=== PATIENT | female | born 1940 | race Caucasian/White ===

== ENCOUNTER 2018-11-08 12:32 | Inpatient (IN) | payer OTHER ==
[2018-11-08] MEDS ORDERED: ALBUTEROL 3 ML DEYVIAL IH PRN (19:57)
[2018-11-08] MEDS ORDERED: CALCIUM CARBONATE 500 MG CHEWABLE TAB PO PRN (19:57)
[2018-11-08] MEDS ORDERED: NYSTATIN POWDER 15 GM BTL TP PRN (19:57)
[2018-11-08] MEDS ORDERED: NITROGLYCERIN 2% 1 GM PACKET TP PRN (19:57)
[2018-11-08] MEDS ORDERED: HYDROCORTISONE ACETATE 25 MG SUPP PR PRN (19:57)
[2018-11-08] MEDS ORDERED: D50W 25 GM/50 ML VIAL IVP PRN (20:01)
[2018-11-08] MEDS: HYDROCODONE/APAP 5/325 TAB PO PRN (20:27)
[2018-11-08] MEDS: SENNOSIDES/DOCUSATE SODIUM TAB PO SCH (20:27)
[2018-11-08] MEDS: GABAPENTIN 100 MG CAP PO SCH (20:28)
[2018-11-08] MEDS: NORTRIPTYLINE HCL 25 MG CAP PO SCH (20:28)
[2018-11-08] MEDS: ATORVASTATIN CALCIUM 20 MG TAB PO SCH (20:28)
--- NOTE | 2018-11-08 20:57 | GHP ---
[f rep st] HISTORY AND PHYSICAL DATE OF ADMISSION: 11/08/2018 TIME OF EVALUATION: 1855. REFERRING FACILITY: [facility]. REFERRING PHYSICIAN: Dr. Pham IMPAIRMENT GROUP: [id number]. CONSULTING PHYSICIANS: There were discussions with Neurology and Neurosurgery, but no formal consultations. REHABILITATION DIAGNOSIS: Spinal cord injury due to ischemia, T1 incomplete SAVANNAH impairment C. ETIOLOGIC DIAGNOSIS: Paraplegia, unspecified (nontraumatic). Date of onset was 09/14/2018. Date of surgery was 10/15/2018. HISTORY OF PRESENT ILLNESS: This patient sustained an ischemic spinal cord injury from the thoracic cord to the conus as a consequence of an elective aortoiliac bypass graft which included reimplantation of 2 renal arteries. This surgery was done on 09/14/2018. She had bilateral lower extremity weakness afterwards and was discharged to a fdc facility for rehabilitation. She was very unsatisfied with the level of care at the fdc facility and went home early. However, she was not able to effectively be managed at home where she was living with her disabled and a son who works full stack software developer. She returned to the [facility] where she had further evaluation and treatment for abnormal laboratory results. She had hypokalemia and hypomagnesemia. There was a small sacral ulcer and severe constipation. In the hospital, her electrolytes were replaced. She was placed on an aggressive bowel regimen and had 1 hard and large stool on 11/01/2018. She had bright red blood per rectum subsequently, and was found to have hemorrhoids. She was maintained on a Lackey catheter which was last exchanged on 11/05/2018. She was mildly volume overloaded and treated with furosemide. STUDIES AND LABS IN THE HOSPITAL: Hemoglobin A1c was 6.7. Total iron was 15, ferritin was high at 346, folate was high, transferrin was 156. Vitamin B12 was normal at 674. A CBC showed anemia with a hemoglobin of 8.7 and hematocrit of 25.9 on 10/30/2018. Platelet count was normal and white blood cell count was normal. BMP on the same date showed a low potassium at 2.9, otherwise was normal. Magnesium was low at 1.3. EKG showed sinus rhythm with a left axis deviation and moderate intraventricular conduction delay. Most recent labs were done on 11/07/2018. Basic metabolic profile was normal. CBC on 2018 showed a hemoglobin of 8.6 and hematocrit of 26.3. She had normal platelet count and normal white blood cell count. Phosphorus on 11/07/2018, was normal at 3.6, and magnesium was slightly low at 1.4. PRECAUTIONS: She is a fall risk. ACTIVE COMORBIDITIES: She has the tier 3 comorbidity of hemiparesis which is actually paraplegia. She has morbid obesity. She has diabetes mellitus with manifestations including peripheral vascular disease. She otherwise has no active tier 1, tier 2 or tier 3 comorbidities. PAST MEDICAL HISTORY: 1. Peripheral vascular disease, status post aortoiliac bypass with reimplantation of 2 left renal arteries, the COURTNEY and the SMA. 2. Hospital delirium. 3. Pseudomonas UTI and sepsis in the hospital. 4. Spinal cord ischemia. 5. Acute kidney injury with dialysis during her prior hospitalization and subsequent recovery of renal function. 6. Anemia. 7. Neurogenic bladder. 8. Spinal degenerative joint disease. 9. Chronic pain. 10. Claudication due to peripheral vascular disease. 11. Diabetes mellitus type 2. 12. Eczema. 13. Cystocele. 14. Fibromyalgia. 15. Gastroesophageal reflux disease. 16. Basal cell skin carcinoma. 17. Hypertension. 18. Dyslipidemia. 19. Hypothyroidism. 20. Irritable bowel syndrome. 21. Lyme disease. 22. Meningioma. 23. Occipital neuralgia. 24. Peripheral neuropathy. 25. Essential tremor. PAST SURGICAL HISTORY: 1. She has had the aortoiliac bypass graft. 2. Cholecystectomy. 3. Hysterectomy. 4. Salpingo-oophorectomy, bilateral. 5. Intraoperative urethrolysis. 6. Bladder suspension and surgery for cystocele and rectocele. 7. Right knee replacement. 8. Tonsillectomy. MEDICATIONS: Home medications are no longer relevant as she has had prolonged hospitalizations, and I do not have the list of her discharge medications from her prior hospitalization. ADMISSION MEDICATIONS: 1. Amlodipine 5 mg p.o. daily. 2. Aspirin 81 mg p.o. daily. 3. Atorvastatin 20 mg p.o. at bedtime. 4. B complex 1 p.o. daily. 5. Cholecalciferol 1000 units p.o. daily. 6. Gabapentin 100 mg p.o. t.i.d. 7. Hydrocodone/acetaminophen 5/325 one p.o. q.6 hours p.r.n. 8. Levothyroxine 75 mcg p.o. daily. 9. Nortriptyline 10 mg p.o. at bedtime. 10. Nystatin powder to affected area b.i.d. p.r.n. 11. Senna/docusate 2 p.o. b.i.d. 12. Tamsulosin 0.4 mg p.o. at bedtime. 13. Triamcinolone 0.1% to affected areas twice daily. 14. Insulin NPH 18 units subcutaneous at bedtime. 15. Furosemide 20 mg p.o. daily. 16. Hydrocortisone, Anusol HC suppository q.12 hours p.r.n. hemorrhoidal symptoms. ALLERGIES: Listed to doxycycline, duloxetine, gabapentin, morphine, and topiramate, but these are all intolerances rather than true allergies. PSYCHOSOCIAL HISTORY: She is . Her has disability and is living with her daughter at home. She lives with her son and [id number] and 2 teenage grandchildren. She has never been a smoker. 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 There is 1 stair to enter the home, but her family has already constructed a ramp. FAMILY HISTORY: Noncontributory. REVIEW OF SYSTEMS: She has little pain, but she has been using [place] at bedtime to help her get to sleep. She has no cough or dyspnea. She has sensation throughout and notes that she has some movement returning to her feet and more so on her right leg. She feels she has normal strength in her upper extremities. She has no cough or dyspnea. She has no fevers or chills. She has no nausea or vomiting. Her last bowel movement was yesterday. She is aware when she has the acute need to defecate but finds she has no control and has fecal incontinence. She reports that she has done self catheterization of her bladder in the past following her bladder procedure and is willing to do so once again. Otherwise, a 10-point review of systems is negative. PHYSICAL EXAMINATION: VITAL SIGNS: Vitals are not yet available in the chart. Her blood pressure was in the 150s over the 90s. Her pulse was in the 90s. She appears to be significantly obese, but weight is not yet recorded. GENERAL : This is a well-nourished, well-developed, obese woman, dressed in hospital gown, in bed, but neatly groomed, cooperative and in no acute distress. HEENT: Extraocular movements are intact. Pupils are equal, round, reactive to light. Mucous members are moist. Dentition is in good condition. NECK: Supple. HEART: Regular rate and rhythm with no murmurs, rubs, or gallops. CHEST: Lungs are clear to auscultation bilaterally. ABDOMEN: Soft, nontender , nondistended with normoactive bowel sounds and no hepatosplenomegaly. EXTREMITIES: There is no cyanosis. There is 1+ edema bilaterally, pretibial. Radial and dorsalis pedis pulses are 2+ bilaterally. NEUROLOGIC: She is alert and oriented x3. Cranial nerves 2-12 are grossly intact. Upper extremity motor strength is normal. Sensation is present in all extremities. On the lower extremity on the right leg she is able to plantar flex and dorsiflex the foot and great toe with approximately 3/5 strength. She has 2/5 strength at the right quadriceps. Otherwise, there was no motor function noted in the right lower extremity. In the left lower extremity, she has minimal movement at the toes and otherwise there is no motor strength noted. Deep tendon reflexes are absent bilaterally at the patella and Achilles tendons. SKIN: There is no ulceration seen over the coccyx, sacrum, or buttocks. She has eschar and denuded skin over time most of her toes on the left lower extremity. CURRENT LEVEL OF FUNCTION: Per the pre-admission screen. She was able to feed herself with setup and supervision. Grooming was done with minimal assist and cues while sitting. Dressing upper body required moderate assistance and lower body was completely dependent. Toileting was completely dependent. Regarding bladder function, she had a Lackey catheter. She was incontinent of bowel. Bed mobility, from supine to sit required maximal assistance. Transfers were done with a Elton lift. Balance, seated required maximal assist, and there were decreased balance reactions. Endurance was poor. Regarding cognition, she was noted to have decreased safety. On today's exam, there are no significant changes from the preadmission screen. 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 She, unfortunately, suffered a spinal cord ischemia during and/or after the procedure and was found to have minimal movement of the lower extremities, and to be an incomplete paraplegic SAVANNAH class C at the T1 level. She has had a complicated hospital course following that surgery, including hospital delirium, acute kidney injury and pseudomonas UTI and sepsis. She was eventually stabilized and transferred to a fdc facility, but she left early as she felt she was not getting appropriate care there. She was unable to be cared for at home by her family and returned to the hospital with severe constipation and electrolyte abnormalities. Electrolytes have been replaced. Constipation has resolved, and she was otherwise medically stabilized and appropriate for inpatient rehabilitation. Her goal is to have decreased burden of care. She reports that she would like to return home. It is my understanding that the alternative disposition might be to a fdc facility for long-term care if her family is unable to provide sufficient level of care at home. For a safe discharge, it is anticipated that she will be able to progress to increased assist with repositioning in bed. She will be at standby assist level with seated balance. She will be independent with pressure relief in the wheelchair, independent with upper body dressing, independent with grooming and hygiene and independent in the self direction of assist required for completion of transfers, ADLs, bowel and bladder management, and skin care. There will be family education regarding current medical and functional status. She will have therapy with physical therapy and occupational therapy for 90 minutes per day on 5-7 days of the week. Her expected duration of stay is 3-4 weeks. It is anticipated that upon discharge, she will continue to require home health services including nursing, a nurse's aide, social work, occupational therapy, and physical therapy. Additionally, she will benefit from a spinal cord injury support group. PLAN: 1. Spinal cord injury, T1 level, incomplete SAVANNAH class C. PT and OT to optimize her mobility and activities of daily living. 2. Complications of spinal cord injury with neurogenic bowel, neurogenic bladder and very impaired lower extremity motor function. She will be treated with the neurogenic bowel and bladder protocols. Lackey catheter will be removed tomorrow, and she will be taught once again in intermittent bladder catheterization to be done by herself. She has adequate upper extremity motor function and sensation to be able to accomplish this task. She is at risk for autonomic dysreflexia and will be monitored for signs of distress or elevated blood pressure and will be treated with the autonomic dysreflexia protocol on the rehabilitation unit. 3. Chronic conditions of hypertension, dyslipidemia, hypothyroidism, and diabetes mellitus type 2. She will be continued on medications for these conditions. 4. History of peripheral neuropathy. She is treated with nortriptyline at 10 mg at h.s. as she also reports insomnia. I will increase this to 25 mg at bedtime. 5. Peripheral vascular disease. Continue aspirin. 6. Skin lesions on the left toes. These appear to be more likely consistent with cholesterol emboli than with pressure ulcers. There will be a wound nurse consult to optimize her management. 7. Fluid overload seen in the hospital. Continue furosemide and will check a basic metabolic profile in the morning. 8. Anemia in the hospital. Will check a CBC in the morning. We will institute iron sulfate at 325 mg daily for 30 days for iron deficiency, though December 08, 2018. 9. Obesity and diabetes mellitus will merit a consult with the dietitian for optimal nutrition. 10. Prophylaxis. She has prolonged immobility and elevated risk for DVT. Will initiate enoxaparin at 40 mg subcutaneous daily. This can be discontinued if her mobility improves significantly or once she is 2-3 months out from the onset of her spinal cord injury. /[id number]/MODL MTDD
[2018-11-08] MEDS: TRIAMCINOLONE 0.1% 15GM OINT TP SCH (21:20)
[2018-11-08] MEDS: INSULIN NPH HUMAN 100 UNITS/ML SYR SC SCH (21:20)
[2018-11-08] MEDS: INSULIN REGULAR HUMAN 100 UNIT/ML UNIT SC SCH (21:29)
[2018-11-09] MEDS: LEVOTHYROXINE 75 MCG TAB PO SCH (06:37)
[2018-11-09] MEDS: SENNOSIDES/DOCUSATE SODIUM TAB PO SCH ×3 (09:02→21:12)
[2018-11-09] MEDS: GABAPENTIN 100 MG CAP PO SCH ×3 (09:02→21:11)
[2018-11-09] MEDS: FUROSEMIDE 20 MG TAB PO SCH (09:02)
[2018-11-09] MEDS: ASPIRIN 81 MG CHEWABLE TAB PO SCH (09:03)
[2018-11-09] MEDS: FERROUS SULFATE 325 MG TAB PO SCH (09:03)
[2018-11-09] MEDS: MAGNESIUM OXIDE 400 MG TAB PO SCH ×2 (09:03→17:35)
[2018-11-09] MEDS: amLODIPine BESYLATE 5 MG TAB PO SCH (09:05)
[2018-11-09] MEDS: ENOXAPARIN 40 MG/0.4 ML SYR SC SCH (09:06)
[2018-11-09] MEDS: INSULIN REGULAR HUMAN 100 UNIT/ML UNIT SC SCH ×4 (09:16→22:28)
[2018-11-09 09:28] LABS: PLATELET COUNT 316 10^3/uL (150-400)
--- NOTE | 2018-11-09 11:04 | SOAPPROG ---
SOAP Progress Note Assessment/Plan: Assessment: Spinal cord injury, T1 level, incomplete SAVANNAH class C. PT and OT to optimize her mobility and activities of daily living. Complications of spinal cord injury with neurogenic bowel, neurogenic bladder and very impaired lower extremity motor function. She will be treated with the neurogenic bowel and bladder protocols. * Lackey catheter to be removed 11/09/2018 or as soon as the unit obtains enough catheters for Q 4 hr intermittent straight catheterization. She will be taught once again in intermittent bladder catheterization to be done by herself. She has adequate upper extremity motor function and sensation to be able to accomplish this task. * She is at risk for autonomic dysreflexia and will be monitored for signs of distress or elevated blood pressure and will be treated with the autonomic dysreflexia protocol on the rehabilitation unit. Chronic conditions of hypertension, dyslipidemia, hypothyroidism, and diabetes mellitus type 2. She will be continued on medications for these conditions. * Initiate metformin 500 mg twice daily with meals beginning evening of 2018. Will likely be able to discontinue sliding scale insulin subsequently. History of peripheral neuropathy. She is treated with nortriptyline 10 mg at h.s. As she also reports insomnia, I will increase this to 25 mg at bedtime. Continue gabapentin at 100 mg three times daily. Consider titration if symptoms are bothersome. Peripheral vascular disease. Continue aspirin. Skin lesions on the left toes. These appear to be more likely consistent with cholesterol emboli than with pressure ulcers. There will be a wound nurse consult to optimize her management. Fluid overload seen in the hospital. * Continue furosemide. Renal function normal on BMP 11/09/2018. Hypomagnesemia. Continue magnesium oxide. Magnesium very slightly low on 2018. Anemia in the hospital. * Also had significant iron deficiency, so initiated iron sulfate 325 mg q.day starting 11/09/2018. * Stable on CBC 11/09/2018, with hemoglobin 8.3 and hematocrit 25.8. Recheck hemoglobin and hematocrit in 1 week Obesity and diabetes mellitus will merit a consult with the dietitian for optimal nutrition. Prophylaxis. She has prolonged immobility and elevated risk for DVT. Will initiate enoxaparin at 40 mg subcutaneous daily. This can be discontinued if her mobility improves significantly or once she is 2-3 months out from the onset of her spinal cord injury. 11/09/18 14:17 Subjective: Slept well. Not in pain. Notes improved movement to her feet. No cough or dyspnea, no fevers or chills. Objective: Vital Signs Temp Pulse Resp BP Pulse Ox 36.9 C 102 H 18 138/70 H 92 11/09/18 05:28 11/09/18 05:28 11/09/18 05:28 11/09/18 09:05 11/09/18 05:28 Laboratory Results 11/09/18 06:00 11/09/18 06:00 11/08/18 11/09/18 11/10/18 05:59 05:59 05:59 Intake Total 400 Output Total 700 Balance -300 Physical Exam - Physical Exam General Appearance: WD/WN, alert, no apparent distress, obese Respiratory: No respiratory distress, No accessory muscle use Skin: normal color, warm/dry Neuro/Psych: alert, normal mood/affect, oriented x 3, motor weakness ( Demonstrates some movement of the feet, right greater than left, and has quadriceps extension of the right leg.) ICD10 Worksheet Patient Problems: Problems Problem Status Onset Spinal cord stroke Acute
[2018-11-09] MEDS: TRIAMCINOLONE 0.1% 15GM OINT TP SCH ×2 (12:01→21:53)
[2018-11-09] MEDS: BISACODYL 10 MG SUPP PR SCH (16:46)
--- NOTE | 2018-11-09 16:46 | PDOREHIP ---
Admission [facility] - Admission - 3 Day Assessment Period Admission Date/Day 1: 11/08/18 Day 2: 11/09/18 Day 3: 11/10/18 - Active Diagnoses Comorbidities and Co-existing Conditions at Admission: 89197. PVD or PAD, 88024. DM (e.g. diabetic retinopathy, nephropathy, and neuropathy) - Skin Conditions Unhealed Pressure Ulcer (1 or more/Stage 1 or >)-Admission: 0. No # Stage 1 Pressure Ulcers-Admission: 0 # Stage 2 Pressure Ulcers-Admission: 0 # Stage 3 Pressure Ulcers-Admission: 0 # Stage 4 Pressure Ulcers-Admission: 0 # Unstageable Pressure Ulcers (Non-remove Dress)-Admission: 0 # Unstageable Pressure Ulcers (Slough/Eschar)-Admission: 0 # Unstageable Pressure Ulcers (Deep Tissue Injury)-Admission: 0
[2018-11-09] MEDS: metFORMIN HCL 500 MG TAB PO SCH (17:35)
[2018-11-09] MEDS: HYDROCODONE/APAP 5/325 TAB PO PRN (20:34)
[2018-11-09] MEDS: NORTRIPTYLINE HCL 25 MG CAP PO SCH (21:12)
[2018-11-09] MEDS: ATORVASTATIN CALCIUM 20 MG TAB PO SCH (21:12)
[2018-11-09] MEDS: INSULIN NPH HUMAN 100 UNITS/ML SYR SC SCH (22:28)
[2018-11-10] MEDS: LEVOTHYROXINE 75 MCG TAB PO SCH (06:37)
[2018-11-10] MEDS: ENOXAPARIN 40 MG/0.4 ML SYR SC SCH (08:44)
[2018-11-10] MEDS: INSULIN REGULAR HUMAN 100 UNIT/ML UNIT SC SCH (08:44)
[2018-11-10] MEDS: GABAPENTIN 100 MG CAP PO SCH ×3 (08:45→21:13)
[2018-11-10] MEDS: SENNOSIDES/DOCUSATE SODIUM TAB PO SCH ×2 (08:45→21:12)
[2018-11-10] MEDS: metFORMIN HCL 500 MG TAB PO SCH ×2 (08:45→17:39)
[2018-11-10] MEDS: MAGNESIUM OXIDE 400 MG TAB PO SCH ×2 (08:46→17:39)
[2018-11-10] MEDS: ASPIRIN 81 MG CHEWABLE TAB PO SCH (08:46)
[2018-11-10] MEDS: amLODIPine BESYLATE 5 MG TAB PO SCH (08:46)
[2018-11-10] MEDS: FUROSEMIDE 20 MG TAB PO SCH (08:47)
[2018-11-10] MEDS: FERROUS SULFATE 325 MG TAB PO SCH (08:47)
[2018-11-10] MEDS: HYDROCODONE/APAP 5/325 TAB PO PRN (08:47)
--- NOTE | 2018-11-10 11:21 | HOSPPROG ---
Hospitalist Progress Note Assessment/Plan: Spinal cord injury, T1 level, incomplete SAVANNAH class C. PT and OT to optimize her mobility and activities of daily living. Complications of spinal cord injury with neurogenic bowel, neurogenic bladder and very impaired lower extremity motor function. She will be treated with the neurogenic bowel and bladder protocols. * Lackey catheter to be removed 11/09/2018 or as soon as the unit obtains enough catheters for Q 4 hr intermittent straight catheterization. She will be taught once again in intermittent bladder catheterization to be done by herself. She has adequate upper extremity motor function and sensation to be able to accomplish this task. * She is at risk for autonomic dysreflexia and will be monitored for signs of distress or elevated blood pressure and will be treated with the autonomic dysreflexia protocol on the rehabilitation unit. * STILL WAITING FOR SELF CATH SUPPLIES SO CAROL IS STILL IN Chronic conditions of hypertension, dyslipidemia, hypothyroidism, and diabetes mellitus type 2. She will be continued on medications for these conditions. * Initiate metformin 500 mg twice daily with meals beginning evening of 2018. Will likely be able to discontinue sliding scale insulin subsequently. * WILL DC SLIDING SCALE - BLOOD SUGARS ARE MOSTLY BELOW 200. WAIT SEVERAL DAYS BEFORE INCREASING METFORMIN History of peripheral neuropathy. She is treated with nortriptyline 10 mg at h.s. As she also reports insomnia, I will increase this to 25 mg at bedtime. Continue gabapentin at 100 mg three times daily. Consider titration if symptoms are bothersome. Peripheral vascular disease. Continue aspirin. Skin lesions on the left toes. These appear to be more likely consistent with cholesterol emboli than with pressure ulcers. There will be a wound nurse consult to optimize her management. Fluid overload seen in the hospital. * Continue furosemide. Renal function normal on BMP 11/09/2018. Hypomagnesemia. Continue magnesium oxide. Magnesium very slightly low on 2018. Anemia in the hospital. * Also had significant iron deficiency, so initiated iron sulfate 325 mg q.day starting 11/09/2018. * Stable on CBC 11/09/2018, with hemoglobin 8.3 and hematocrit 25.8. Recheck hemoglobin and hematocrit in 1 week Obesity and diabetes mellitus will merit a consult with the dietitian for optimal nutrition. Prophylaxis. She has prolonged immobility and elevated risk for DVT. Will initiate enoxaparin at 40 mg subcutaneous daily. This can be discontinued if her mobility improves significantly or once she is 2-3 months out from the onset of her spinal cord injury. Subjective: no new compliants. very happy with rehab so far. Objective: Vital Signs Temp Pulse Resp BP Pulse Ox 37.0 C 106 H 18 142/71 H 93 11/09/18 20:00 11/09/18 20:00 11/09/18 20:00 11/10/18 08:46 11/09/18 20:00 Laboratory Results 11/09/18 06:00 11/09/18 06:00 11/09/18 11/10/18 11/11/18 05:59 05:59 05:59 Intake Total 400 900 Output Total 700 1800 Balance -300 -900 - Physical Exam Constitutional: no apparent distress, appears nourished, not in pain Eyes: anicteric sclera, EOMI Ears, Nose, Mouth, Throat: moist mucous membranes Cardiovascular: regular rate and rhythym, no murmur, rub, or gallop Respiratory: no respiratory distress, no rales or rhonchi Skin: warm, other (superficial ischemic skin wounds left toes) Neurologic: AAOx3, other (wiggles toes) ICD10 Worksheet Patient Problems: Problems Problem Status Onset Spinal cord stroke Acute
[2018-11-10] MEDS: TRIAMCINOLONE 0.1% 15GM OINT TP SCH ×2 (17:04→19:40)
[2018-11-10] MEDS: ACETAMINOPHEN 325 MG TAB PO PRN (17:18)
[2018-11-10] MEDS: BISACODYL 10 MG SUPP PR SCH (19:40)
[2018-11-10] MEDS: ATORVASTATIN CALCIUM 20 MG TAB PO SCH (21:12)
[2018-11-10] MEDS: NORTRIPTYLINE HCL 25 MG CAP PO SCH (21:12)
[2018-11-10] MEDS: INSULIN NPH HUMAN 100 UNITS/ML SYR SC SCH (21:13)
[2018-11-11] MEDS: LEVOTHYROXINE 75 MCG TAB PO SCH (06:25)
[2018-11-11] MEDS: metFORMIN HCL 500 MG TAB PO SCH ×2 (08:45→18:20)
[2018-11-11] MEDS: MAGNESIUM OXIDE 400 MG TAB PO SCH ×2 (08:45→18:20)
[2018-11-11] MEDS: GABAPENTIN 100 MG CAP PO SCH ×4 (08:46→21:14)
[2018-11-11] MEDS: FUROSEMIDE 20 MG TAB PO SCH (08:46)
[2018-11-11] MEDS: SENNOSIDES/DOCUSATE SODIUM TAB PO SCH ×2 (08:46→21:14)
[2018-11-11] MEDS: FERROUS SULFATE 325 MG TAB PO SCH (08:47)
[2018-11-11] MEDS: amLODIPine BESYLATE 5 MG TAB PO SCH (08:47)
[2018-11-11] MEDS: ENOXAPARIN 40 MG/0.4 ML SYR SC SCH (08:47)
[2018-11-11] MEDS: ASPIRIN 81 MG CHEWABLE TAB PO SCH (08:47)
[2018-11-11] MEDS: TRIAMCINOLONE 0.1% 15GM OINT TP SCH ×2 (08:48→21:14)
[2018-11-11] MEDS ORDERED: GABAPENTIN 100 MG CAP PO ONE ×2 (10:51)
[2018-11-11] MEDS ORDERED: GABAPENTIN 100 MG CAP PO SCH (10:52)
--- NOTE | 2018-11-11 11:00 | HOSPPROG ---
Hospitalist Progress Note Assessment/Plan: Spinal cord injury, T1 level, incomplete SAVANNAH class C. PT and OT to optimize her mobility and activities of daily living. Complications of spinal cord injury with neurogenic bowel, neurogenic bladder and very impaired lower extremity motor function. She will be treated with the neurogenic bowel and bladder protocols. * Lackey catheter to be removed 11/09/2018 or as soon as the unit obtains enough catheters for Q 4 hr intermittent straight catheterization. She will be taught once again in intermittent bladder catheterization to be done by herself. She has adequate upper extremity motor function and sensation to be able to accomplish this task. * She is at risk for autonomic dysreflexia and will be monitored for signs of distress or elevated blood pressure and will be treated with the autonomic dysreflexia protocol on the rehabilitation unit. * BEING TAUGHT HOW TO SELF CATH Chronic conditions of hypertension, dyslipidemia, hypothyroidism, and diabetes mellitus type 2. She will be continued on medications for these conditions. * Initiate metformin 500 mg twice daily with meals beginning evening of 2018. Will likely be able to discontinue sliding scale insulin subsequently. * WILL DC SLIDING SCALE - BLOOD SUGARS ARE MOSTLY BELOW 200. WAIT SEVERAL DAYS BEFORE INCREASING METFORMIN * DONT KNOW WHY SHE IS ON NPH AT NIGHT - THAT IS HER HOME REGIMEN History of peripheral neuropathy. She is treated with nortriptyline 10 mg at h.s. As she also reports insomnia, I will increase this to 25 mg at bedtime. Continue gabapentin at 100 mg three times daily. Consider titration if symptoms are bothersome. * NEW NEUROPATHIC PAIN PRESUMABLY FROM SPINAL CORD INJURY - WILL INCREASE GABAPENTIN TO 200 MG TID. SHE HAD SOME NAUSEA IN THE PAST TO IT SO WILL INCREASE SLOWLY Peripheral vascular disease. Continue aspirin. Skin lesions on the left toes. These appear to be more likely consistent with cholesterol emboli than with pressure ulcers. There will be a wound nurse consult to optimize her management. Fluid overload seen in the hospital. * Continue furosemide. Renal function normal on BMP 11/09/2018. * INCREASE FUROSEMIDE TO 40 MG DAILY CLOUDY URINE * CHECK UA Hypomagnesemia. Continue magnesium oxide. Magnesium very slightly low on 2018. Anemia in the hospital. * Also had significant iron deficiency, so initiated iron sulfate 325 mg q.day starting 11/09/2018. * Stable on CBC 11/09/2018, with hemoglobin 8.3 and hematocrit 25.8. Recheck hemoglobin and hematocrit in 1 week Obesity and diabetes mellitus will merit a consult with the dietitian for optimal nutrition. Prophylaxis. She has prolonged immobility and elevated risk for DVT. Will initiate enoxaparin at 40 mg subcutaneous daily. This can be discontinued if her mobility improves significantly or once she is 2-3 months out from the onset of her spinal cord injury. Subjective: norco doesn't help with pain. gabapentin does. wondering about increasing the dose. also wth cloudy smelly urine per RN Objective: Vital Signs Temp Pulse Resp BP Pulse Ox 36.8 C 100 16 133/75 H 97 11/10/18 20:00 11/10/18 20:00 11/10/18 20:00 11/11/18 08:47 11/10/18 20:00 Laboratory Results 11/09/18 06:00 11/09/18 06:00 11/10/18 11/11/18 11/12/18 05:59 05:59 05:59 Intake Total 900 Output Total 1800 1325 Balance -900 -1325 - Physical Exam Constitutional: no apparent distress, appears nourished, not in pain Eyes: anicteric sclera, EOMI Ears, Nose, Mouth, Throat: moist mucous membranes Cardiovascular: regular rate and rhythym, edema (2+) Respiratory: no respiratory distress, no rales or rhonchi Gastrointestinal: normoactive bowel sounds, soft, non-tender abdomen, no palpable masses Skin: warm Neurologic: AAOx3 ICD10 Worksheet Patient Problems: Problems Problem Status Onset Spinal cord stroke Acute
[2018-11-11] MEDS: BISACODYL 10 MG SUPP PR SCH (16:34)
[2018-11-11] MEDS: INSULIN NPH HUMAN 100 UNITS/ML SYR SC SCH (21:13)
[2018-11-11] MEDS: ATORVASTATIN CALCIUM 20 MG TAB PO SCH (21:14)
[2018-11-11] MEDS: NORTRIPTYLINE HCL 25 MG CAP PO SCH (21:14)
[2018-11-12] MEDS: LEVOTHYROXINE 75 MCG TAB PO SCH (07:18)
[2018-11-12] MEDS: amLODIPine BESYLATE 5 MG TAB PO SCH (08:08)
[2018-11-12] MEDS: FERROUS SULFATE 325 MG TAB PO SCH (08:09)
[2018-11-12] MEDS: MAGNESIUM OXIDE 400 MG TAB PO SCH ×2 (08:09→17:19)
[2018-11-12] MEDS: SENNOSIDES/DOCUSATE SODIUM TAB PO SCH ×2 (08:09→19:15)
[2018-11-12] MEDS: ASPIRIN 81 MG CHEWABLE TAB PO SCH (08:09)
[2018-11-12] MEDS: FUROSEMIDE 20 MG TAB PO SCH (08:09)
[2018-11-12] MEDS: GABAPENTIN 100 MG CAP PO SCH ×3 (08:09→21:35)
[2018-11-12] MEDS: metFORMIN HCL 500 MG TAB PO SCH ×2 (08:09→17:19)
[2018-11-12] MEDS: ENOXAPARIN 40 MG/0.4 ML SYR SC SCH (08:10)
[2018-11-12] MEDS: TRIAMCINOLONE 0.1% 15GM OINT TP SCH ×2 (08:26→21:35)
--- NOTE | 2018-11-12 11:12 | SOAPPROG ---
SOAP Progress Note Assessment/Plan: Assessment: Plan: Subjective: Patient reports that she continues to have pain around her ankles. She had some increased neuropathic pain over the weekend and her dosage of gabapentin was increased. She does not report nausea with the gabapentin. She does not report pain in her left toes. She denies of the dysuria or suprapubic pain. Objective: Vital Signs Temp Pulse Resp BP Pulse Ox 36.8 C 100 19 143/79 H 93 11/12/18 07:26 11/12/18 07:26 11/12/18 07:26 11/12/18 08:08 11/12/18 07:26 Laboratory Results 11/09/18 06:00 11/09/18 06:00 11/11/18 11/12/18 11/13/18 05:59 05:59 05:59 Intake Total 1350 354 Output Total 3041 1950 Balance -1325 -600 354 ICD10 Worksheet Patient Problems: Problems Problem Status Onset Spinal cord stroke Acute
--- NOTE | 2018-11-12 11:20 | SOAPPROG ---
SOAP Progress Note Assessment/Plan: Assessment: Spinal cord injury, T1 level, incomplete SAVANNAH class C. PT and OT to optimize her mobility and activities of daily living. GABAPENTIN FOR LOWER EXTREMITY NEUROPATHIC PAIN Complications of spinal cord injury with neurogenic bowel, neurogenic bladder and very impaired lower extremity motor function. She will be treated with the neurogenic bowel and bladder protocols. * Lackey catheter to be removed 11/09/2018 or as soon as the unit obtains enough catheters for Q 4 hr intermittent straight catheterization. Team rounds on indicates the patient is unable to perform self catheterization due to a combination of body habitus and inability to abduct hips. She has adequate upper extremity motor function and sensation to be able to accomplish this task. * She is at risk for autonomic dysreflexia and will be monitored for signs of distress or elevated blood pressure and will be treated with the autonomic dysreflexia protocol on the rehabilitation unit. Chronic conditions of hypertension, dyslipidemia, hypothyroidism, and diabetes mellitus type 2. She will be continued on medications for these conditions. * Initiate metformin 500 mg twice daily with meals beginning evening of 2018. SLIDING SCALE INSULIN DISCHARGED OVER THE WEEKEND. History of peripheral neuropathy. She is treated with nortriptyline 10 mg at h.s. As she also reports insomnia, I will increase this to 25 mg at bedtime. Continue gabapentin at 100 mg three times daily. Consider titration if symptoms are bothersome. HYPERTENSION-BLOOD PRESSURES TO ON 11/12 143/79. Peripheral vascular disease. Continue aspirin. GOOD CAPILLARY REFILL OF BOTH LOWER EXTREMITIES Skin lesions on the left toes. These appear to be more likely consistent with cholesterol emboli than with pressure ulcers. NURSING HAS NOTIFIED WOUND CARE NURSE WHO WILL SEE PATIENT TODAY. Fluid overload seen in the hospital. * Continue furosemide. Renal function normal on BMP 11/09/2018. Hypomagnesemia. Continue magnesium oxide. Magnesium very slightly low on 2018. Anemia in the hospital. * Also had significant iron deficiency, so initiated iron sulfate 325 mg q.day starting 11/09/2018. * Stable on CBC 11/09/2018, with hemoglobin 8.3 and hematocrit 25.8. Recheck hemoglobin and hematocrit in 1 week Obesity and diabetes mellitus will merit a consult with the dietitian for optimal nutrition. Prophylaxis. She has prolonged immobility and elevated risk for DVT. Will initiate enoxaparin at 40 mg subcutaneous daily. This can be discontinued if her mobility improves significantly or once she is 2-3 months out from the onset of her spinal cord injury. OCCUPATIONAL THERAPY HAS ADDED THIGH-HIGH COMPRESSION STOCKINGS WHICH IS APPROPRIATE. Plan: 11/12/18 11:15 11/12/18 11:17 Subjective: The patient reports she has some pain and tightness around both ankles. She had some increased neuropathic pain in the lower extremities over the weekend and her dosage of gabapentin was increased. She denies nausea or other side effects with the gabapentin. She denies abdominal pain. She denies dysuria. Objective: Vital Signs Temp Pulse Resp BP Pulse Ox 36.8 C 100 19 143/79 H 93 11/12/18 07:26 11/12/18 07:26 11/12/18 07:26 11/12/18 08:08 11/12/18 07:26 Laboratory Results 11/09/18 06:00 11/09/18 06:00 11/11/18 11/12/18 11/13/18 05:59 05:59 05:59 Intake Total 1350 354 Output Total 1325 1950 Balance -1325 -600 354 Physical Exam - Physical Exam General Appearance: WD/WN, alert, no apparent distress Respiratory: lungs clear, normal breath sounds Peripheral Pulses: 1+: dorsalis-pedis (R), dorsalis-pedis (L) Abdomen: normal bowel sounds, non-tender Skin: other (Gangrenous changes distal toes with skin sloughing in all 5 digits. Both lower extremities warm, no erythema or induration.) Extremities: No swelling, No Leeann's sign Neuro/Psych: motor weakness (Motor exam consistent with paraplegia with 2/5 strength of ankle dorsiflexors.) ICD10 Worksheet Patient Problems: Problems Problem Status Onset Spinal cord stroke Acute
[2018-11-12] MEDS: ACETAMINOPHEN 325 MG TAB PO PRN ×2 (13:19→21:35)
[2018-11-12] MEDS: BISACODYL 10 MG SUPP PR SCH (15:29)
--- NOTE | 2018-11-12 18:04 | WOCRNPDOC ---
WOCRN Advanced Assessment Note - Skin Integrity Problem, Advanced Assess Left Toe Unknown Dressing Type: Open to Air Wound Bed Constitution: Stable Eschar Skin Integrity Problem Comment: First four toes on left foot have evidence of ischemic injury that is at least a month old. No sign of infection. The eschar on several of the wounds is peeling off and reveals a clean fully epithelized wound bed. The wound on the first digit is the deepest and will take the longest to heal, but as all of the wounds are healing appropriately continuing the current plan of care works. Please continue to paint wounds with betadine BID until all the eschar has peeled off. This may take several months for the great toe. Wound care will sign off. Perianal Denuded Dressing Type: Open to Air Skin Integrity Problem Comment: Mild partial thickness epithelial loss from 6 to 9 oclock around anus to 0.5 cm. No concerns. May treat with calazime cream then switch to dimethicone cream when the area has epithelized. Wound care will sign off.
[2018-11-12] MEDS: NORTRIPTYLINE HCL 25 MG CAP PO SCH (21:35)
[2018-11-12] MEDS: INSULIN NPH HUMAN 100 UNITS/ML SYR SC SCH (21:35)
[2018-11-12] MEDS: ATORVASTATIN CALCIUM 20 MG TAB PO SCH (21:35)
[2018-11-13] MEDS: LEVOTHYROXINE 75 MCG TAB PO SCH (05:04)
[2018-11-13] MEDS: ACETAMINOPHEN 325 MG TAB PO PRN (05:04)
[2018-11-13] MEDS: GABAPENTIN 100 MG CAP PO SCH ×3 (08:19→20:57)
[2018-11-13] MEDS: ASPIRIN 81 MG CHEWABLE TAB PO SCH (08:19)
[2018-11-13] MEDS: FUROSEMIDE 20 MG TAB PO SCH (08:19)
[2018-11-13] MEDS: amLODIPine BESYLATE 5 MG TAB PO SCH (08:19)
[2018-11-13] MEDS: MAGNESIUM OXIDE 400 MG TAB PO SCH ×2 (08:19→17:24)
[2018-11-13] MEDS: ENOXAPARIN 40 MG/0.4 ML SYR SC SCH (08:20)
[2018-11-13] MEDS: FERROUS SULFATE 325 MG TAB PO SCH (08:20)
[2018-11-13] MEDS: metFORMIN HCL 500 MG TAB PO SCH ×2 (08:20→17:24)
[2018-11-13] MEDS: TRIAMCINOLONE 0.1% 15GM OINT TP SCH ×2 (08:28→22:06)
[2018-11-13] MEDS: SENNOSIDES/DOCUSATE SODIUM TAB PO SCH ×2 (08:28→22:06)
--- NOTE | 2018-11-13 10:17 | SOAPPROG ---
SOAP Progress Note Assessment/Plan: Assessment: Spinal cord injury, T1 level, incomplete SAVANNAH class C. PT and OT to optimize her mobility and activities of daily living. GABAPENTIN FOR LOWER EXTREMITY NEUROPATHIC PAIN. She reports some increase in lower extremity tenderness secondary to fibromyalgia. Complications of spinal cord injury with neurogenic bowel, neurogenic bladder and very impaired lower extremity motor function. She will be treated with the neurogenic bowel and bladder protocols. * Lackey catheter to be removed 11/09/2018 or as soon as the unit obtains enough catheters for Q 4 hr intermittent straight catheterization. Team rounds on indicates the patient is unable to perform self catheterization due to a combination of body habitus and inability to abduct hips. She has adequate upper extremity motor function and sensation to be able to accomplish this task. * She is at risk for autonomic dysreflexia and will be monitored for signs of distress or elevated blood pressure and will be treated with the autonomic dysreflexia protocol on the rehabilitation unit. Chronic conditions of hypertension, dyslipidemia, hypothyroidism, and diabetes mellitus type 2. She will be continued on medications for these conditions. * Initiate metformin 500 mg twice daily with meals beginning evening of 2018. SLIDING SCALE INSULIN DISCHARGED OVER THE WEEKEND. History of peripheral neuropathy. She is treated with nortriptyline 10 mg at h.s. As she also reports insomnia, I will increase this to 25 mg at bedtime. Continue gabapentin at 100 mg three times daily. Consider titration if symptoms are bothersome. She reports her lower extremity pain is well controlled. HYPERTENSION-BLOOD PRESSURES TO ON 11/12 143/79. Peripheral vascular disease. Continue aspirin. GOOD CAPILLARY REFILL OF BOTH LOWER EXTREMITIES Skin lesions on the left toes. WOUND CARE NOTE FROM 11/13 WRITTEN APPRECIATED. NURSES AWARE OF CURRENT SKIN CARE PLAN. These appear to be more likely consistent with cholesterol emboli than with pressure ulcers. NURSING HAS NOTIFIED WOUND CARE NURSE WHO WILL SEE PATIENT TODAY. Fluid overload seen in the hospital. ON 11/13 EXAM NO EVIDENCE OF FLUID OVERLOAD. * Continue furosemide. Renal function normal on BMP 11/09/2018. Hypomagnesemia. Continue magnesium oxide. Magnesium very slightly low on 2018. Anemia in the hospital. * Also had significant iron deficiency, so initiated iron sulfate 325 mg q.day starting 11/09/2018. * Stable on CBC 11/09/2018, with hemoglobin 8.3 and hematocrit 25.8. Recheck hemoglobin and hematocrit in 1 week Obesity and diabetes mellitus will merit a consult with the dietitian for optimal nutrition. Prophylaxis. She has prolonged immobility and elevated risk for DVT. Will initiate enoxaparin at 40 mg subcutaneous daily. This can be discontinued if her mobility improves significantly or once she is 2-3 months out from the onset of her spinal cord injury. OCCUPATIONAL THERAPY HAS ADDED THIGH-HIGH COMPRESSION STOCKINGS WHICH IS APPROPRIATE. Plan: 11/12/18 11:15 11/12/18 11:17 11/13/18 10:18 Subjective: She reports that her legs are tender secondary to fibromyalgia. She does not report suprapubic pain. She has been getting straight cathed every 4 hr. She does not feel lightheaded when performing supine to sit transfers. She has not noticed any return of lower extremity motor function Objective: Vital Signs Temp Pulse Resp BP Pulse Ox 37.0 C 92 17 138/69 H 97 11/13/18 05:46 11/13/18 05:46 11/13/18 05:46 11/13/18 08:19 11/13/18 05:46 Microbiology 11/12/18 13:00 Gastrointestinal Tract Panel (PCR) - Final Stool No Organism Detected By Pcr Laboratory Results 11/09/18 06:00 11/09/18 06:00 11/12/18 11/13/18 11/14/18 05:59 05:59 05:59 Intake Total 1350 1126 472 Output Total 1950 2100 Balance -600 -97 472 Physical Exam - Physical Exam General Appearance: WD/WN, alert, no apparent distress Respiratory: lungs clear, normal breath sounds Abdomen: non-tender, soft, other (No suprapubic tenderness) Skin: warm/dry, other (Left foot is warm, no erythema. No change in eschars on toes. Significant tissue sloughing of all digits on the left foot continue.) Neuro/Psych: motor weakness (1-2/5 right and left ankle dorsiflexors, otherwise no functional movement of lower extremities.) ICD10 Worksheet Patient Problems: Problems Problem Status Onset Spinal cord stroke Acute
[2018-11-13] MEDS: BISACODYL 10 MG SUPP PR SCH (15:35)
[2018-11-13] MEDS: INSULIN NPH HUMAN 100 UNITS/ML SYR SC SCH (20:57)
[2018-11-13] MEDS: ATORVASTATIN CALCIUM 20 MG TAB PO SCH (22:05)
[2018-11-13] MEDS: NORTRIPTYLINE HCL 25 MG CAP PO SCH (22:05)
[2018-11-14] MEDS: LEVOTHYROXINE 75 MCG TAB PO SCH (05:49)
[2018-11-14] MEDS: ASPIRIN 81 MG CHEWABLE TAB PO SCH (09:48)
[2018-11-14] MEDS: ENOXAPARIN 40 MG/0.4 ML SYR SC SCH (09:48)
[2018-11-14] MEDS: GABAPENTIN 100 MG CAP PO SCH ×3 (09:48→21:11)
[2018-11-14] MEDS: metFORMIN HCL 500 MG TAB PO SCH ×2 (09:48→17:30)
[2018-11-14] MEDS: FUROSEMIDE 20 MG TAB PO SCH (09:48)
[2018-11-14] MEDS: amLODIPine BESYLATE 5 MG TAB PO SCH (09:49)
[2018-11-14] MEDS: FERROUS SULFATE 325 MG TAB PO SCH (09:49)
[2018-11-14] MEDS: SENNOSIDES/DOCUSATE SODIUM TAB PO SCH ×2 (09:49→21:11)
[2018-11-14] MEDS: MAGNESIUM OXIDE 400 MG TAB PO SCH ×2 (09:49→17:30)
[2018-11-14] MEDS: TRIAMCINOLONE 0.1% 15GM OINT TP SCH ×2 (09:50→21:00)
[2018-11-14] MEDS: ACETAMINOPHEN 325 MG TAB PO PRN ×2 (09:57→18:19)
[2018-11-14] MEDS: BISACODYL 10 MG SUPP PR SCH (15:08)
--- NOTE | 2018-11-14 17:22 | SOAPPROG ---
SOAP Progress Note Assessment/Plan: Assessment: Spinal cord injury, T1 level, incomplete SAVANANH class C. * Initial functional independence measure was 52 on 11/12/2018. She does grooming and hygiene with standby assist. Upper body dressing is done with minimal assistance. She was able to self propel a wheelchair 70 ft with standby assist. Otherwise mobility and ADLs require maximum to total assist. * Continue PT and OT to optimize her mobility and activities of daily living. Complications of spinal cord injury with neurogenic bowel, neurogenic bladder and very impaired lower extremity motor function. She will be treated with the neurogenic bowel and bladder protocols. * Lackey catheter was removed 11/09/2018. She is having intermittent catheterization per nursing. She is unable to participate herself yet as she does not have those stability to be seated upright in order to visualize the perineum and use her arms and hands. Discussed with patient 11/14/2018. She prefers to continue intermittent catheterization and as she developed stability and has hands free, she will participate more in self catheterization. * Bowel program appears to be effective with bisacodyl suppository at 1600. Nursing reports her mornings are far too busy with OT tasks and bladder catheterization, and 1600 is a preferred time. * She is at risk for autonomic dysreflexia. She has had no signs or symptoms. Chronic conditions of dyslipidemia, hypothyroidism, and diabetes mellitus type 2. She will be continued on medications for these conditions. * Initiate metformin 500 mg twice daily with meals beginning evening of 2018. Increased to 1000 mg twice daily evening of 11/14/2018. History of peripheral neuropathy. She is treated with nortriptyline 10 mg at h.s. As she also reports insomnia, increased to 25 mg at bedtime on 11/09/2018.. * Gabapentin at 100 mg three times daily was increased to 200 mg three times daily on 11/12/2018. Monitor for improvement in symptoms. Fatigue, likely due to poor sleep. Nursing has changed her to another mattress which she reports feels more comfortable, 11/14/2018. If she remains fatigued while sleeping better, will evaluate further. Will consider discontinuation of gabapentin. Left knee pain. X-ray 11/14/2018 shows moderate to severe medial compartment osteoarthritis and a knee effusion. * Consider bracing knee for positioning. Will discuss further with physical therapy. * Continue acetaminophen p.r.n. and hydrocodone/acetaminophen p.r.n. Fluid overload seen in the hospital. * Continue furosemide. Renal function normal on BMP 11/09/2018. * Check weight Monday and Monday. Hypertension. Intermittently above target, on amlodipine 5 mg q.day and furosemide 40 mg q.day. * If fluid status has stabilized consider discontinuing furosemide and initiating hydrochlorothiazide or DOROTEO or ARB for better blood pressure effect. Peripheral vascular disease. Continue aspirin. Skin lesions on the left toes, ischemic. Seen by wound nurse. They appear to be healing. Continue painting with Betadine twice daily until eschar is resolved. Hypomagnesemia. Continue magnesium oxide. Magnesium very slightly low on 2018. Anemia in the hospital. * Also had significant iron deficiency, so initiated iron sulfate 325 mg q.day starting 11/09/2018. * Stable on CBC 11/09/2018, with hemoglobin 8.3 and hematocrit 25.8. Recheck hemoglobin and hematocrit in 1 week Obesity and diabetes mellitus will merit a consult with the dietitian for optimal nutrition. Prophylaxis. She has prolonged immobility and elevated risk for DVT. Will initiate enoxaparin at 40 mg subcutaneous daily. This can be discontinued if her mobility improves significantly or once she is 2-3 months out from the onset of her spinal cord injury. 11/14/18 17:06 Subjective: Has fatigue. Poor sleep last night and complains about the comfort of the bed; she is on a specialized mattress to protect against pressure sores. She has left knee pain especially with positioning during transfers including with the Elton lift. Had bowel movement this afternoon after a suppository. Has not been able to participate in intermittent catheterization, partly because when supine she is unable to see her perineum. She is not yet stable enough sitting upright to use her hands. Objective: Vital Signs Temp Pulse Resp BP Pulse Ox 36.8 C 99 18 143/62 H 93 11/14/18 05:46 11/14/18 05:46 11/14/18 05:46 11/14/18 05:46 11/14/18 05:46 Laboratory Results 11/09/18 06:00 11/09/18 06:00 11/13/18 11/14/18 11/15/18 05:59 05:59 05:59 Intake Total 1126 1592 340 Output Total 2100 2250 1050 Balance -974 -658 -710 Physical Exam - Physical Exam General Appearance: WD/WN, alert, no apparent distress Respiratory: No respiratory distress, No accessory muscle use Skin: normal color, warm/dry Extremities: pedal edema (Trace to 1+ bilateral), No calf tenderness Neuro/Psych: alert, normal mood/affect, oriented x 3, motor weakness (Bilateral lower extremities) ICD10 Worksheet Patient Problems: Problems Problem Status Onset Spinal cord stroke Acute
[2018-11-14] MEDS: NORTRIPTYLINE HCL 25 MG CAP PO SCH (21:11)
[2018-11-14] MEDS: ATORVASTATIN CALCIUM 20 MG TAB PO SCH (21:11)
[2018-11-14] MEDS: INSULIN NPH HUMAN 100 UNITS/ML SYR SC SCH (21:19)
[2018-11-15] MEDS: LEVOTHYROXINE 75 MCG TAB PO SCH (05:58)
[2018-11-15] MEDS: GABAPENTIN 100 MG CAP PO SCH ×3 (07:40→21:37)
[2018-11-15] MEDS: ASPIRIN 81 MG CHEWABLE TAB PO SCH (07:41)
[2018-11-15] MEDS: MAGNESIUM OXIDE 400 MG TAB PO SCH ×2 (07:41→17:11)
[2018-11-15] MEDS: FERROUS SULFATE 325 MG TAB PO SCH (07:41)
[2018-11-15] MEDS: metFORMIN HCL 500 MG TAB PO SCH ×2 (07:41→17:10)
[2018-11-15] MEDS: ENOXAPARIN 40 MG/0.4 ML SYR SC SCH (07:42)
[2018-11-15] MEDS: amLODIPine BESYLATE 5 MG TAB PO SCH (07:42)
[2018-11-15] MEDS: FUROSEMIDE 20 MG TAB PO SCH (07:42)
[2018-11-15] MEDS: SENNOSIDES/DOCUSATE SODIUM TAB PO SCH ×2 (07:44→21:37)
[2018-11-15] MEDS: TRIAMCINOLONE 0.1% 15GM OINT TP SCH ×2 (07:49→21:38)
--- NOTE | 2018-11-15 13:41 | NOWCEV ---
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 The surgery was performed on 09/14/18, and she had B LE weakness immediately after. During hospitalization she had a small ulcer on her sacrum and ulcers on the toes of her L foot. She was referred to have recommendations made for the most medically appropriate wheelchair to allow for safe and independent propulsion at access [facility]. Functional Mobility - Elissa is not able to ambulate, even with an AD such as a cane or walker due to her paraplegia. To complete transitions to/from a MWC she requires mod A x1 with use of a slide board. She had difficulty self propelling the [facility] MWC which she is currently utilizing in the hospital. She can only propel this chair less than household distances, and this causes pain in her shoulder and she feels that she is going to lose the balance forward. She has difficulty reaching back to the propulsion wheel, which causes her strokes to be short and inefficient. In this [facility] MWC, Elissa has to be pushed to propel distances equivalent to household distances. To complete sup to/from sit transitions, she requires mod A x2 for trunk and LE management. Head/Trunk control - Elissa's head control is WFL. Her trunk control is limited. To sit unsupported, she requires B UE support on mat and CG-occ min A. She is not able to perform functional reaching or tasks in unsupported sitting. In the [facility] MWC which she is currently utilizing, Elissa feels that she is tipping forward, which again limits her functional reach. Motor involvement - Elissa has significant motor involvement below her level of injury, and global weakness in her UEs. MMT is as follows: ankle PF/DF B: 2- /5, knee ext B: 2-/5, gluteals B: 1+/5, shoulder abduction and flexion B: 4-/5, but pain with testing of her R shoulder. She has limited LE ROM. Ankle DF is limited to 0degrees passively B, following some stretching. R hip ER is limited to ~5deg and is painful, L hip IR is limited, but not painful. She also has pain in her L knee, and flexion is limited to 90deg. She is hypotonic below her injury. Posture - Elissa sits with a level pelvis and shoulders. She has a posterior pelvic tilt, a thoracic kyphosis with rounded shoulders and a somewhat forward head. She sits with her R hip slightly internally rotated and B feet in ER. Skin Sensation - Elissa has impaired protective sensation below her level of injury. She has hypersensitivity in B feet that radiates into her lower legs. She has a h/o a sacral ulcer, and has an active wound on her L foot. The wound her distal L great toe is unstageable and she has additional wounds on the dorsal aspect of toes 2-5, which where covered but draining at time of this evaluation. Endurance - Elissa has significantly impaired endurance. She can only propel the [facility] MWC she is currently utilizing less than household distances prior to fatigue. ADLs - Elissa is able to perform basic ADLs from a wheelchair level including feeding and washing up. She requires external assistance for toileting, bathing and dressing. Her functional reach iat perform ADLs n the [facility] MWC she is currently using is limited due to decreased postural control, and lack of support provided by the current seating system. Cognitive/Social - Elissa is fully cognizant and able to make her own medical decisions. She is , but her has disability and was living with her son and [id number]. There is a ramp to enter the home. Current wheelchair - Elissa does not current own a wheelchair. While in inpatient, she has been utilizing a [facility] with custom cushion. This chair is not meeting her needs on many levels. She is not able to achieve an appropriate amount of postural support and control in this chair and frequently feels she is going to lose her balance forward. The back canes on the chair are hitting her in the back of the arms as she tried to reach back to the propulsion wheel, which is too far back for her to be able to reach to effectively propel. The arm rests are not adjustable and interfere with her ability to reach the propulsion wheel. This is placing her at risk for a shoulder injury due to poor posture and positioning when attempting to propel. Additionally, the chair is too heavy for her to effectively push even household distance on a level surface. The sling back and cushion on the chair she is utilizing does not provide Elissa with adequate postural support, and is limiting her ability to perform functional reaching activities from a wheelchair level. MEDICAL and FUNCTIONAL NEED/OBJECTIVES To procure an ultra light weight MWC and custom seating system to allow for safe and independent access to MRADLs within her home. EQUIPMENT RECOMMENDATIONS AND JUSTIFICATIONS The following recommendations are believed to be the most cost effective way to meet the patients medical and functional needs. * Ultra lightweight MWC: Needed to provide Elissa with safe, consistent, and independent access to MRADLs in her home. Elissa is not able to ambulate, even with a walker, crutches, or cane due to paraplegia. She is not able to utilize a std MWC or light weight MWC for several reasons. First, Elissa requires a chair with an adjustable rear dion to allow her to reach her propulsion wheel for independent self propulsion of household distances. A propulsion wheel that is placed in a more forward position will decrease risk of shoulder injury, as Elissa experiences shoulder pain when attempting to wheel a std MWC. An adjustable rear dion is only available in an ultra lightweight frame. Elissa requires a trash collector supervisor weight chair due to her decreased UE strength and poor endurance. Without the ultra light weight frame , Elissa will be unable to independently self propel between rooms in her home at access ADLs. Additionally, Elissa requires a custom seating system that cannot be fitted on a std MWC. In an ultra light weight MWC, Elissa will be able to safely and independently access MRADLs in her home without assistance or injuring her shoulders. * Skin protection positioning cushion: Needed to optimize pressure distribution and decrease risk of future skin breakdown, as Elissa has a (+) h/o skin breakdown on her sacrum. Additionally, Elissa requires the postural support provided by the cushion to prevent her from experiencing anterior LOB due to her decreased trunk control second to paraplegia, as well as to optimize the position of her shoulders to allow for effective self propulsion. An off the shelf cushion would lead to further skin breakdown, as well as an inability to perform ADLs from her wheelchair due to her limited trunk control. Therefore a skin protection positioning cushion is warranted. * Posterior positioning back rest: Needed to provide Elissa with appropriate postural support and control to allow her to perform functional reaching tasks in order to complete ADLs without loss of balance. Additionally, the back rest needs to be able to accommodate her thoracic kyphosis and work in conjunction with her skin protection positioning cushion to optimize pressure distribution to decrease risk of future skin breakdown. This cannot be accomplished with an off the shelf back rest. * Height adjustable flip back arm rests: Height adjustable arm rests are required so that the arm rest can be positioned to prevent interference with self propulsion, as well as to be at the appropriate height to maximizing independence with transfers. Flip back is necessary so that the arm rests do not interfere with slide board transfers. * Angle adjustable foot plate with heel loop: Angle adjustable foot plate is needed so that the foot plate can be positioned at an angle that does not place increased pressure on Elissa's feet where she is experiencing skin breakdown, as well as hypersensitivity. An inability to adjust the angle of the foot plate could lead to decreased wound healing and further issues with skin breakdown. Heel loops are necessary to prevent Deas feet from falling off her foot plates as she has severely limited motor activation in her LEs. * Anti-tippers: Needed to prevent Deas chair from flipping over backward during propulsion, when performing functional ADLs form her wheelchair, or during transfers. * Wheel lock extensions: Needed to provide Elissa with the ability to easily lock her wheelchair prior to transfers and performing ADLs. Due to her limited trunk control, Elissa requires the extensions to prevent her from experiencing anterior LOB when locking her wheels. * Pelvic belt: Needed to stabilize Deas pelvis to prevent sheering when self propelling her wheelchair. This will also provide safely when performing functional tasks from a wheelchair level, or when propelling up/down the ramp to access her home. These recommendations are based on the likelihood that Elissa will require the use of an ultra light wheelchair for all mobility and to access ADLs for the rest of her life. If you have any questions or concerns regarding the stated recommendations, please feel free to contact the therapist at [phone]. Thank you for your cooperation in obtaining the necessary equipment for this patient. DANITZA Harper
[2018-11-15] MEDS: ACETAMINOPHEN 325 MG TAB PO PRN ×2 (14:01→21:56)
[2018-11-15] MEDS: BISACODYL 10 MG SUPP PR SCH (15:46)
--- NOTE | 2018-11-15 16:00 | SOAPPROG ---
SOAP Progress Note Assessment/Plan: Assessment: Spinal cord injury, T1 level, incomplete SAVANNAH class C. * Initial functional independence measure was 52 on 11/12/2018. She does grooming and hygiene with standby assist. Upper body dressing is done with minimal assistance. She was able to self propel a wheelchair 70 ft with standby assist. Otherwise mobility and ADLs require maximum to total assist. * Continue PT and OT to optimize her mobility and activities of daily living. Complications of spinal cord injury with neurogenic bowel, neurogenic bladder and very impaired lower extremity motor function. She will be treated with the neurogenic bowel and bladder protocols. * Lackey catheter was removed 11/09/2018. She is having intermittent catheterization per nursing. She is unable to participate herself yet as she does not have those stability to be seated upright in order to visualize the perineum and use her arms and hands. Discussed with patient 11/14/2018. She prefers to continue intermittent catheterization and as she developed stability and has hands free, she will participate more in self catheterization. * Bowel program appears to be effective with bisacodyl suppository at 1600. Nursing reports her mornings are far too busy with OT tasks and bladder catheterization, and 1600 is a preferred time. * She is at risk for autonomic dysreflexia. She has had no signs or symptoms. Chronic conditions of dyslipidemia, hypothyroidism, and diabetes mellitus type 2. She will be continued on medications for these conditions. * Initiate metformin 500 mg twice daily with meals beginning evening of 2018. Increased to 1000 mg twice daily evening of 11/14/2018. History of peripheral neuropathy. She is treated with nortriptyline 10 mg at h.s. As she also reports insomnia, increased to 25 mg at bedtime on 11/09/2018.. * Gabapentin at 100 mg three times daily was increased to 200 mg three times daily on 11/12/2018. Monitor for improvement in symptoms. Fatigue, likely due to poor sleep. Nursing has changed her to another mattress which she reports feels more comfortable, 11/14/2018. * Fatigue is much improved with improved sleep. Left knee pain. X-ray 11/14/2018 shows moderate to severe medial compartment osteoarthritis and a knee effusion. * Improved with better positioning in bed initiated by Physical therapy. * Continue acetaminophen p.r.n. and hydrocodone/acetaminophen p.r.n. Fluid overload seen in the hospital. * Has had furosemide 40 mg q.day for 4 days. Weight is unchanged. Discontinue furosemide starting 11/16/2018. * Check weight Monday and Monday. Hypertension. Intermittently above target, on amlodipine 5 mg q.day and furosemide 40 mg q.day. * Discontinue furosemide 11/16/2018. * Initiate lisinopril at 10 mg q.day starting 11/16/2018. She reports she was using it previously and had no adverse effects. Repeat BMP on 11/21/2018. Hemorrhoids. Initiate topical steroid preparation, 11/15/2018. Peripheral vascular disease. Continue aspirin. Skin lesions on the left toes, ischemic. Seen by wound nurse. They appear to be healing. Continue painting with Betadine twice daily until eschar is resolved. Hypomagnesemia. Continue magnesium oxide. Magnesium very slightly low on 2018. Anemia in the hospital. * Also had significant iron deficiency, so initiated iron sulfate 325 mg q.day starting 11/09/2018. * Stable on CBC 11/09/2018, with hemoglobin 8.3 and hematocrit 25.8. Recheck hemoglobin and hematocrit 11/19/2018 Obesity and diabetes mellitus will merit a consult with the dietitian for optimal nutrition. Prophylaxis. She has prolonged immobility and elevated risk for DVT. Will initiate enoxaparin at 40 mg subcutaneous daily. This can be discontinued if her mobility improves significantly or once she is 2-3 months out from the onset of her spinal cord injury. DISPOSITION: Discharge date tentatively set for 11/23/2018. Pending progress, she may be appropriate to discharge to a alf facility for more prolonged rehabilitation. 11/15/18 15:49 Subjective: Her legs feels sore after working with physical therapy today. Knee pain is improved. Slept well. Otherwise without complaints. Objective: Vital Signs Temp Pulse Resp BP Pulse Ox 36.7 C 97 16 153/76 H 96 11/15/18 06:05 11/15/18 06:05 11/15/18 06:05 11/15/18 07:42 11/15/18 06:05 Laboratory Results 11/09/18 06:00 11/09/18 06:00 11/14/18 11/15/18 11/16/18 05:59 05:59 05:59 Intake Total 1592 440 454 Output Total 2250 1740 655 [facility] -[phone] -1300 -201 Physical Exam - Physical Exam General Appearance: WD/WN, alert, no apparent distress Respiratory: No respiratory distress, No accessory muscle use Cardiac/Chest: edema (Trace to 1+ bilateral pretibial) Skin: normal color, warm/dry Neuro/Psych: alert, normal mood/affect, oriented x 3, motor weakness ICD10 Worksheet Patient Problems: Problems Problem Status Onset Spinal cord stroke Acute
[2018-11-15] MEDS: INSULIN NPH HUMAN 100 UNITS/ML SYR SC SCH (21:37)
[2018-11-15] MEDS: ATORVASTATIN CALCIUM 20 MG TAB PO SCH (21:37)
[2018-11-15] MEDS: NORTRIPTYLINE HCL 25 MG CAP PO SCH (21:37)
[2018-11-15] MEDS: HYDROCORTISONE 2.5% 30 GM CRTUBE TP PRN (21:38)
[2018-11-15] MEDS: HYDROCODONE/APAP 5/325 TAB PO PRN (23:30)
[2018-11-16] MEDS: LEVOTHYROXINE 75 MCG TAB PO SCH (06:13)
[2018-11-16] MEDS: SENNOSIDES/DOCUSATE SODIUM TAB PO SCH ×2 (08:15→21:37)
[2018-11-16] MEDS: MAGNESIUM OXIDE 400 MG TAB PO SCH ×2 (08:15→18:02)
[2018-11-16] MEDS: GABAPENTIN 100 MG CAP PO SCH ×3 (08:16→21:37)
[2018-11-16] MEDS: ENOXAPARIN 40 MG/0.4 ML SYR SC SCH (08:16)
[2018-11-16] MEDS: ASPIRIN 81 MG CHEWABLE TAB PO SCH (08:16)
[2018-11-16] MEDS: FERROUS SULFATE 325 MG TAB PO SCH (08:16)
[2018-11-16] MEDS: metFORMIN HCL 500 MG TAB PO SCH ×2 (08:16→18:02)
[2018-11-16] MEDS: LISINOPRIL 10 MG TAB PO SCH (08:19)
[2018-11-16] MEDS: amLODIPine BESYLATE 5 MG TAB PO SCH (08:19)
[2018-11-16] MEDS: TRIAMCINOLONE 0.1% 15GM OINT TP SCH ×2 (09:20→21:46)
--- NOTE | 2018-11-16 11:42 | SOAPPROG ---
SOAP Progress Note Assessment/Plan: Assessment: Spinal cord injury, T1 level, incomplete SAVANNAH class C. * Initial functional independence measure was 52 on 11/12/2018. She does grooming and hygiene with standby assist. Upper body dressing is done with minimal assistance. She was able to self propel a wheelchair 70 ft with standby assist. Otherwise mobility and ADLs require maximum to total assist. * Continue PT and OT to optimize her mobility and activities of daily living. Complications of spinal cord injury with neurogenic bowel, neurogenic bladder. She will be treated with the neurogenic bowel and bladder protocols. * Lackey catheter was removed 11/09/2018. She is having intermittent catheterization per nursing. She is unable to participate herself yet as she does not have those stability to be seated upright in order to visualize the perineum and use her arms and hands. Discussed with patient 11/14/2018. She prefers to continue intermittent catheterization and as she developed stability and has hands free, she will participate more in self catheterization. * Bowel program appears to be effective with bisacodyl suppository at 1600. Nursing reports her mornings are far too busy with OT tasks and bladder catheterization, and 1600 is a preferred time. * She is at risk for autonomic dysreflexia. She has had no signs or symptoms. Chronic conditions of dyslipidemia, hypothyroidism, and diabetes mellitus type 2. She will be continued on medications for these conditions. * Initiate metformin 500 mg twice daily with meals beginning evening of 2018. Increased to 1000 mg twice daily evening of 11/14/2018. History of peripheral neuropathy. She was treated with nortriptyline 10 mg at h.s. As she also reports insomnia, increased to 25 mg at bedtime on 11/09/2018.. * Gabapentin at 100 mg three times daily was increased to 200 mg three times daily on 11/12/2018. Monitor for improvement in symptoms. Fatigue, likely due to poor sleep. Nursing has changed her to another mattress which she reports feels more comfortable, 11/14/2018. * Fatigue is much improved with improved sleep. Left knee pain. X-ray 11/14/2018 shows moderate to severe medial compartment osteoarthritis and a knee effusion. * Improved with better positioning in bed initiated by Physical therapy. * Continue acetaminophen p.r.n. and hydrocodone/acetaminophen p.r.n. Fluid overload seen in the hospital. * Has had furosemide 40 mg q.day for 4 days. Weight is unchanged. Discontinued furosemide starting 11/16/2018. * Check weight Monday and Monday. Hypertension. Intermittently above target, on amlodipine 5 mg q.day and furosemide 40 mg q.day. * Discontinue furosemide 11/16/2018. * Initiate lisinopril at 10 mg q.day starting 11/16/2018. She reports she was using it previously and had no adverse effects. Repeat BMP on 11/21/2018. * Had episode of lightheadedness 11/16/2018 but no hypotension was noted. Continue to monitor. Hemorrhoids. Initiate topical steroid preparation, 11/15/2018. Peripheral vascular disease. Continue aspirin. Skin lesions on the left toes, ischemic. Seen by wound nurse. They appear to be healing. Continue painting with Betadine twice daily until eschar is resolved. Hypomagnesemia. Continue magnesium oxide. Magnesium very slightly low on 2018. Anemia in the hospital. * Also had significant iron deficiency, so initiated iron sulfate 325 mg q.day starting 11/09/2018. * Stable on CBC 11/09/2018, with hemoglobin 8.3 and hematocrit 25.8. Recheck hemoglobin and hematocrit 11/21/2018 Obesity and diabetes mellitus will merit a consult with the dietitian for optimal nutrition. Prophylaxis. She has prolonged immobility and elevated risk for DVT. Will initiate enoxaparin at 40 mg subcutaneous daily. This can be discontinued if her mobility improves significantly or once she is 2-3 months out from the onset of her spinal cord injury. DISPOSITION: Discharge date tentatively set for 11/23/2018. Pending progress, she may be appropriate to discharge to a senior living facility for more prolonged rehabilitation. 11/16/18 11:37 Subjective: Slept okay overnight, but reports that she found "holes" in her new pressure relief mattress. She feels she is able to engage her right leg better in attempts to transfer. Had lightheadedness this morning when she setup. No vertigo. Otherwise without complaints. Objective: Vital Signs Temp Pulse Resp BP Pulse Ox 36.8 C 96 17 132/67 H 92 11/16/18 06:44 11/16/18 08:18 11/16/18 06:44 11/16/18 08:19 11/16/18 06:44 Laboratory Results 11/09/18 06:00 11/09/18 06:00 11/15/18 11/16/18 11/17/18 05:59 05:59 05:59 Intake Total 440 990 Output Total 6814 1074 Balance -1300 -1465 Physical Exam - Physical Exam General Appearance: WD/WN, alert, no apparent distress Respiratory: No respiratory distress, No accessory muscle use Skin: normal color, warm/dry Neuro/Psych: alert, normal mood/affect, oriented x 3, motor weakness (Bilateral lower extremities) ICD10 Worksheet Patient Problems: Problems Problem Status Onset Spinal cord stroke Acute
[2018-11-16] MEDS: BISACODYL 10 MG SUPP PR SCH (16:24)
[2018-11-16] MEDS: ATORVASTATIN CALCIUM 20 MG TAB PO SCH (21:33)
[2018-11-16] MEDS: INSULIN NPH HUMAN 100 UNITS/ML SYR SC SCH (21:34)
[2018-11-16] MEDS: NORTRIPTYLINE HCL 25 MG CAP PO SCH (21:34)
[2018-11-16] MEDS: ACETAMINOPHEN 325 MG TAB PO PRN (21:37)
[2018-11-17] MEDS: LEVOTHYROXINE 75 MCG TAB PO SCH (05:55)
[2018-11-17] MEDS: ASPIRIN 81 MG CHEWABLE TAB PO SCH (08:59)
[2018-11-17] MEDS: LISINOPRIL 10 MG TAB PO SCH (08:59)
[2018-11-17] MEDS: metFORMIN HCL 500 MG TAB PO SCH ×2 (08:59→17:23)
[2018-11-17] MEDS: GABAPENTIN 100 MG CAP PO SCH ×3 (08:59→21:14)
[2018-11-17] MEDS: amLODIPine BESYLATE 5 MG TAB PO SCH (08:59)
[2018-11-17] MEDS: FERROUS SULFATE 325 MG TAB PO SCH (08:59)
[2018-11-17] MEDS: ENOXAPARIN 40 MG/0.4 ML SYR SC SCH (08:59)
[2018-11-17] MEDS: MAGNESIUM OXIDE 400 MG TAB PO SCH ×2 (09:00→17:23)
[2018-11-17] MEDS: SENNOSIDES/DOCUSATE SODIUM TAB PO SCH ×2 (09:01→21:14)
[2018-11-17] MEDS: TRIAMCINOLONE 0.1% 15GM OINT TP SCH ×2 (09:04→21:18)
[2018-11-17] MEDS: ACETAMINOPHEN 325 MG TAB PO PRN ×2 (14:15→21:15)
--- NOTE | 2018-11-17 14:51 | SOAPPROG ---
SOAP Progress Note Assessment/Plan: Assessment: 77 YO woman with Ischemic SCI Spinal cord injury, T1 level, incomplete SAVANNAH class C. * Initial functional independence measure was 52 on 11/12/2018. * Continue PT and OT to optimize her mobility and activities of daily living. Complications of spinal cord injury with neurogenic bowel, neurogenic bladder. She will be treated with the neurogenic bowel and bladder protocols. * Lackey catheter was removed 11/09/2018. She is having intermittent catheterization per nursing. Continue intermittent catheterization and as she developed stability and has hands free, she will participate more in self catheterization. * Continue Bowel program * She is at risk for autonomic dysreflexia. She has had no signs or symptoms. Chronic conditions of dyslipidemia, hypothyroidism, and diabetes mellitus type 2. She will be continued on medications for these conditions. * Initiate metformin 500 mg twice daily with meals beginning evening of 2018. Increased to 1000 mg twice daily evening of 11/14/2018. History of peripheral neuropathy. She was treated with nortriptyline 10 mg at [facility] As she also reports insomnia, increased to 25 mg at bedtime on 11/09/2018.. * Gabapentin at 100 mg three times daily was increased to 200 mg three times daily on 11/12/2018. Monitor for improvement in symptoms. Fatigue, likely due to poor sleep, and meds. * Fatigue is much improved with improved sleep. Left knee pain. X-ray 11/14/2018 shows moderate to severe medial compartment osteoarthritis and a knee effusion. * Improved with better positioning in bed initiated by Physical therapy. * Continue acetaminophen p.r.n. and hydrocodone/acetaminophen p.r.n. Fluid overload seen in the hospital. * Has had furosemide 40 mg q.day for 4 days. Weight is unchanged. Discontinued furosemide starting 11/16/2018. !+ edema L calf today 11/17. * Check weight Monday and Monday. Hypertension. Intermittently above target, on amlodipine 5 mg q.day and furosemide 40 mg q.day. 118/64 today * Discontinue furosemide 11/16/2018. * Initiate lisinopril at 10 mg q.day starting 11/16/2018. She reports she was using it previously and had no adverse effects. Repeat BMP on 11/21/2018. * Had episode of lightheadedness 11/16/2018 but no hypotension was noted. Continue to monitor. Hemorrhoids. Initiate topical steroid preparation, 11/15/2018. Peripheral vascular disease. Continue aspirin. Skin lesions on the left toes, ischemic. Per wound nurse, they appear to be healing. Continue painting with Betadine twice daily until eschar is resolved. Hypomagnesemia. Continue magnesium oxide. Magnesium very slightly low on 2018. Anemia in the hospital. * Also had significant iron deficiency, so initiated iron sulfate 325 mg q.day starting 11/09/2018. * Stable on CBC 11/09/2018, with hemoglobin 8.3 and hematocrit 25.8. Recheck hemoglobin and hematocrit 11/21/2018 Obesity and diabetes mellitus will merit a consult with the dietitian for optimal nutrition. Prophylaxis. She has prolonged immobility and elevated risk for DVT. Cont enoxaparin at 40 mg subcutaneous daily. This can be discontinued if her mobility improves significantly or once she is 2-3 months out from the onset of her spinal cord injury. DISPOSITION: Discharge date tentatively set for 11/23/2018. Pending progress, she may be appropriate to discharge to a retirement facility for more prolonged rehabilitation. Plan: Cont Dr Jhaveri's rehab treatment plan 11/17/18 14:51 Subjective: No new problems or C/O's Baseline pain still at times is significant and limiting her progress, participation and quality of life No F/C/CP/SOB/N/V/D RE-filled suppository order per nursing request Objective: Vital Signs Temp Pulse Resp BP Pulse Ox 36.9 C 94 14 118/64 94 11/17/18 05:56 11/17/18 05:56 11/17/18 05:56 11/17/18 05:56 11/17/18 05:56 Laboratory Results 11/09/18 06:00 11/09/18 06:00 11/16/18 11/17/18 11/18/18 05:59 05:59 05:59 Intake Total 990 570 480 Output Total 2455 1100 450 Balance -1465 -530 30 Physical Exam - Physical Exam General Appearance: alert, no apparent distress Neck: supple Respiratory: lungs clear, crackles (l base) Cardiac/Chest: regular rate, rhythm Abdomen: normal bowel sounds, soft Skin: normal color, warm/dry Extremities: pedal edema (1+, L>R) Neuro/Psych: alert, oriented x 3, motor weakness, sensory deficit, depressed affect, other (no acute changes) ICD10 Worksheet Patient Problems: Problems Problem Status Onset Spinal cord stroke Acute
[2018-11-17] MEDS: HYDROCODONE/APAP 5/325 TAB PO PRN (15:55)
[2018-11-17] MEDS: BISACODYL 10 MG SUPP PR SCH ×2 (15:56→17:25)
[2018-11-17] MEDS ORDERED: INSULIN NPH HUMAN 100 UNITS/ML SYR SC ONE (21:00)
[2018-11-17] MEDS: NORTRIPTYLINE HCL 25 MG CAP PO SCH (21:14)
[2018-11-17] MEDS: ATORVASTATIN CALCIUM 20 MG TAB PO SCH (21:14)
[2018-11-17] MEDS: HYDROCORTISONE 2.5% 30 GM CRTUBE TP PRN (22:01)
[2018-11-17] MEDS: INSULIN NPH HUMAN 100 UNITS/ML SYR SC SCH (22:53)
[2018-11-18] MEDS: LEVOTHYROXINE 75 MCG TAB PO SCH (05:46)
[2018-11-18] MEDS: metFORMIN HCL 500 MG TAB PO SCH ×2 (08:41→18:25)
[2018-11-18] MEDS: ENOXAPARIN 40 MG/0.4 ML SYR SC SCH (08:41)
[2018-11-18] MEDS: ASPIRIN 81 MG CHEWABLE TAB PO SCH (08:45)
[2018-11-18] MEDS: LISINOPRIL 10 MG TAB PO SCH (08:45)
[2018-11-18] MEDS: SENNOSIDES/DOCUSATE SODIUM TAB PO SCH ×2 (08:46→11:31)
[2018-11-18] MEDS: MAGNESIUM OXIDE 400 MG TAB PO SCH (08:46)
[2018-11-18] MEDS: amLODIPine BESYLATE 5 MG TAB PO SCH (08:46)
[2018-11-18] MEDS: GABAPENTIN 100 MG CAP PO SCH ×3 (08:46→21:28)
[2018-11-18] MEDS: FERROUS SULFATE 325 MG TAB PO SCH (08:47)
[2018-11-18] MEDS: TRIAMCINOLONE 0.1% 15GM OINT TP SCH ×2 (09:27→21:29)
--- NOTE | 2018-11-18 13:35 | SOAPPROG ---
SOAP Progress Note Assessment/Plan: Assessment: 77 YO woman with Ischemic SCI Spinal cord injury, T1 level, incomplete SAVANNAH class C. * Initial functional independence measure was 52 on 11/12/2018. * Continue PT and OT to optimize her mobility and activities of daily living. Neurogenic bowel, neurogenic bladder. * Cont bowel and bladder protocols. * Cont intermittent catheterization per nursing. Query if patient will be capable of [place] with intermittent catheterization, as she lacks stability and confidence to progress with self catheterization. * Continue Bowel program * She is at risk for autonomic dysreflexia. She has had no signs or symptoms. Chronic conditions of dyslipidemia, hypothyroidism, and diabetes mellitus type 2. She will be continued on medications for these conditions. * Initiate metformin 500 mg twice daily with meals beginning evening of 2018. Increased to 1000 mg twice daily evening of 11/14/2018. History of peripheral neuropathy. She was treated with nortriptyline 10 mg at [facility] As she also reports insomnia, increased to 25 mg at bedtime on 11/09/2018.. * Gabapentin at 100 mg three times daily was increased to 200 mg three times daily on 11/12/2018. Monitor for improvement in symptoms. Fatigue, likely due to poor sleep, and meds. * Fatigue is much improved with improved sleep. Left knee pain. X-ray 11/14/2018 shows moderate to severe medial compartment osteoarthritis and a knee effusion. * Improved with better positioning in bed initiated by Physical therapy. * Continue acetaminophen p.r.n. and hydrocodone/acetaminophen p.r.n. Fluid overload seen in the hospital. * Had furosemide 40 mg q.day for 4 days. Weight was unchanged. Discontinued furosemide 11/16/2018. 1+ edema L calf 11/17, none seen 11/18. Monitor Crackles L base. * Check weight Monday and Monday. Hypertension. Intermittently above target, on amlodipine 5 mg q.day and furosemide 40 mg q.day. 118/64 today * Discontinue furosemide 11/16/2018. * Initiate lisinopril at 10 mg q.day starting 11/16/2018. She reports she was using it previously and had no adverse effects. Repeat BMP on 11/21/2018. * Had episode of lightheadedness 11/16/2018 but no hypotension was noted. Continue to monitor. Hemorrhoids. Initiate topical steroid preparation, 11/15/2018. Add desitin to promote healing. Peripheral vascular disease. Continue aspirin. Skin lesions on the left toes, ischemic. Per wound nurse, they appear to be healing. Continue painting with Betadine twice daily until eschar is resolved. Hypomagnesemia. Continue magnesium oxide. Magnesium very slightly low on 2018. Anemia in the hospital. * Also had significant iron deficiency, so initiated iron sulfate 325 mg q.day starting 11/09/2018. * Stable on CBC 11/09/2018, with hemoglobin 8.3 and hematocrit 25.8. Recheck hemoglobin and hematocrit 11/21/2018 Obesity and diabetes mellitus will merit a consult with the dietitian for optimal nutrition. Prophylaxis. Cont enoxaparin at 40 mg subcutaneous daily 11/10 prolonged immobility and elevated risk for DVT. This can be discontinued if her mobility improves significantly or once she is 2-3 months out from the onset of her spinal cord injury. DISPOSITION: Discharge date tentatively set for 11/23/2018. Pending progress, she may be appropriate to discharge to a fpc facility for more prolonged rehabilitation. Plan: Cont Dr Jhaveri's rehab treatment plan 11/18/18 13:51 Subjective: Very uncomfortable in specialty care mattress, at her request we will transfer back to regular matress. Monitor skin. Cont with frequent turns through the night. Loose stools. Need to hold bowel meds. No F/C/CP/SOB/N/V/ Objective: Vital Signs Temp Pulse Resp BP Pulse Ox 36.6 C 91 16 127/68 H 96 11/18/18 06:30 11/18/18 06:30 11/18/18 06:30 11/18/18 08:46 11/18/18 06:30 Laboratory Results 11/09/18 06:00 11/09/18 06:00 11/17/18 11/18/18 11/19/18 05:59 05:59 05:59 Intake Total 570 980 200 Output Total 1100 1375 300 Balance -530 -395 -100 Physical Exam - Physical Exam General Appearance: alert Neck: supple Respiratory: crackles (L base) Cardiac/Chest: regular rate, rhythm Rectal: hemorrhoids Skin: normal color, warm/dry Extremities: No pedal edema, No calf tenderness Neuro/Psych: alert, normal mood/affect, oriented x 3, motor weakness, sensory deficit, other (no acute changes), No cognition abnormalities ICD10 Worksheet Patient Problems: Problems Problem Status Onset Spinal cord stroke Acute
[2018-11-18] MEDS ORDERED: BISACODYL 10 MG SUPP PR PRN (14:46)
[2018-11-18] MEDS ORDERED: SENNOSIDES/DOCUSATE SODIUM TAB PO PRN (14:47)
[2018-11-18] MEDS: DESITIN MAX STRENGTH OINTMENT TP PRN ×2 (16:00→21:30)
[2018-11-18] MEDS: ACETAMINOPHEN 325 MG TAB PO PRN (18:28)
[2018-11-18] MEDS: NORTRIPTYLINE HCL 25 MG CAP PO SCH (21:28)
[2018-11-18] MEDS: ATORVASTATIN CALCIUM 20 MG TAB PO SCH (21:28)
[2018-11-18] MEDS: INSULIN NPH HUMAN 100 UNITS/ML SYR SC SCH (21:29)
[2018-11-18] MEDS: HYDROCODONE/APAP 5/325 TAB PO PRN (21:33)
[2018-11-18] MEDS: HYDROCORTISONE 2.5% 30 GM CRTUBE TP PRN (21:35)
[2018-11-19] MEDS: LEVOTHYROXINE 75 MCG TAB PO SCH (06:01)
[2018-11-19] MEDS: GABAPENTIN 100 MG CAP PO SCH ×3 (08:25→20:36)
[2018-11-19] MEDS: ENOXAPARIN 40 MG/0.4 ML SYR SC SCH (08:25)
[2018-11-19] MEDS: TRIAMCINOLONE 0.1% 15GM OINT TP SCH ×2 (08:26→20:38)
[2018-11-19] MEDS: amLODIPine BESYLATE 5 MG TAB PO SCH (08:26)
[2018-11-19] MEDS: FERROUS SULFATE 325 MG TAB PO SCH (08:26)
[2018-11-19] MEDS: metFORMIN HCL 500 MG TAB PO SCH ×2 (08:26→17:17)
[2018-11-19] MEDS: ASPIRIN 81 MG CHEWABLE TAB PO SCH (08:26)
[2018-11-19] MEDS: LISINOPRIL 10 MG TAB PO SCH (08:26)
--- NOTE | 2018-11-19 13:25 | SOAPPROG ---
SOAP Progress Note Assessment/Plan: Assessment: Spinal cord injury, T1 level, incomplete SAVANNAH class C. * Initial functional independence measure was 52 on 11/12/2018, improved to 59 as of 11/19/2018. Maximal assist for transfers, bed mobility. Self-propelled wheelchair 90 ft with standby assist. Standby assist for grooming and hygiene, upper body dressing and bathing. Maximal assist for bath and toilet transfers. Total assist for toileting aftercare.. She does with standby assist. * Continue PT and OT to optimize her mobility and activities of daily living. Complications of spinal cord injury with neurogenic bowel, neurogenic bladder. She will be treated with the neurogenic bowel and bladder protocols. * Lackey catheter was removed 11/09/2018. She is having intermittent catheterization per nursing. She is unable to participate herself yet as she does not have those stability to be seated upright in order to visualize the perineum and use her arms and hands. Discussed with patient 11/19/2018. Will place Lackey catheter until she develops sufficient upper body stability to learn how to self cath. Neurogenic bowel * Over-treatment with laxatives. Received senna 7 tabs over 3 days prior to having 5 bowel movements in 1 day. * Continue Senna 1 tab daily. * Continue neurogenic bowel protocol with bisacodyl QD at 1600 and digital stimulation as needed. Chronic conditions of dyslipidemia, hypothyroidism, and diabetes mellitus type 2. She will be continued on medications for these conditions. * Initiate metformin 500 mg twice daily with meals beginning evening of 2018. Increased to 1000 mg twice daily evening of 11/14/2018. History of peripheral neuropathy. She was treated with nortriptyline 10 mg at [facility] As she also reports insomnia, increased to 25 mg at bedtime on 11/09/2018.. * Gabapentin at 100 mg three times daily was increased to 200 mg three times daily on 11/12/2018. * Has worsening lower extremity neuropathic symptoms. Increase gabapentin to 300 mg three times daily starting 11/19/2018. Fatigue, likely due to poor sleep. Nursing has changed her to another mattress which she reports feels more comfortable, 11/14/2018. * Fatigue is much improved with improved sleep. Left knee pain. X-ray 11/14/2018 shows moderate to severe medial compartment osteoarthritis and a knee effusion. * Improved with better positioning in bed initiated by Physical therapy. * Continue acetaminophen p.r.n. and hydrocodone/acetaminophen p.r.n. Fluid overload seen in the hospital. * Has had furosemide 40 mg q.day for 4 days. Weight is unchanged. Discontinued furosemide starting 11/16/2018. * Check weight Monday and Monday. Hypertension. Intermittently above target, on amlodipine 5 mg q.day and furosemide 40 mg q.day. * Discontinue furosemide 11/16/2018. * Initiate lisinopril at 10 mg q.day starting 11/16/2018. She reports she was using it previously and had no adverse effects. Repeat BMP on 11/21/2018. * Had episode of lightheadedness 11/16/2018 but no hypotension was noted. Continue to monitor. Hemorrhoids. Initiate topical steroid preparation, 11/15/2018. Peripheral vascular disease. Continue aspirin. Skin lesions on the left toes, ischemic. Seen by wound nurse. They appear to be healing. Continue painting with Betadine twice daily until eschar is resolved. Hypomagnesemia. Continue magnesium oxide. Magnesium very slightly low on 2018. Anemia in the hospital. * Also had significant iron deficiency, so initiated iron sulfate 325 mg q.day starting 11/09/2018. * Stable on CBC 11/09/2018, with hemoglobin 8.3 and hematocrit 25.8. Recheck hemoglobin and hematocrit 11/21/2018 Obesity and diabetes mellitus will merit a consult with the dietitian for optimal nutrition. Prophylaxis. She has prolonged immobility and elevated risk for DVT. Will initiate enoxaparin at 40 mg subcutaneous daily. This can be discontinued if her mobility improves significantly or once she is 2-3 months out from the onset of her spinal cord injury. DISPOSITION: Attended staffing, 15 min. Discussed with case management, dietitian, nursing, PT, OT. Goal is to achieve one-person assist level for mobility and ADLs. Discharge date set for 11/30/2018. Will not discharge home as she does not have enough help available. May discharge to home of nearby relatives. 11/19/18 13:07 Subjective: Slept better on regular mattress. Did not tolerate specialty mattresses. Reports improved ability to move her legs in and out of bed. Had 5 bowel movements yesterday after receiving laxatives for several days. No abdominal pain, no fevers or chills, no nausea or vomiting. Has worsening nerve pain in legs and requests increased gabapentin. Objective: Vital Signs Temp Pulse Resp BP Pulse Ox 36.8 C 102 H 18 114/49 L 92 11/19/18 08:00 11/19/18 08:00 11/19/18 08:00 11/19/18 08:26 11/19/18 08:00 Laboratory Results 11/09/18 06:00 11/09/18 06:00 11/18/18 11/19/18 11/20/18 05:59 05:59 05:59 Intake Total 980 1640 476 Output Total 1375 1425 Balance -395 215 476 - Time Spent With Patient Time Spent With Patient: Greater than 35 min floor time today, including more than 50% of time in coordination of care during staffing meeting, and counseling patient. Physical Exam - Physical Exam General Appearance: WD/WN, alert, no apparent distress, obese Respiratory: No respiratory distress, No accessory muscle use Cardiac/Chest: edema (Trace bilateral pretibial) Skin: normal color, warm/dry Neuro/Psych: alert, normal mood/affect, oriented x 3, motor weakness (Bilateral lower extremities) ICD10 Worksheet Patient Problems: Problems Problem Status Onset Spinal cord stroke Acute
[2018-11-19] MEDS: ACETAMINOPHEN 325 MG TAB PO PRN (14:45)
[2018-11-19] MEDS: NORTRIPTYLINE HCL 25 MG CAP PO SCH (20:36)
[2018-11-19] MEDS: ATORVASTATIN CALCIUM 20 MG TAB PO SCH (20:37)
[2018-11-19] MEDS: SENNOSIDES/DOCUSATE SODIUM TAB PO SCH (20:38)
[2018-11-19] MEDS: HYDROCORTISONE 2.5% 30 GM CRTUBE TP PRN (20:38)
[2018-11-19] MEDS: INSULIN NPH HUMAN 100 UNITS/ML SYR SC SCH (20:38)
[2018-11-19] MEDS: DESITIN MAX STRENGTH OINTMENT TP PRN (20:38)
[2018-11-19] MEDS: HYDROCODONE/APAP 5/325 TAB PO PRN (20:43)
[2018-11-20] MEDS: LEVOTHYROXINE 75 MCG TAB PO SCH (06:43)
[2018-11-20] MEDS: GABAPENTIN 100 MG CAP PO SCH ×3 (08:31→21:22)
[2018-11-20] MEDS: ENOXAPARIN 40 MG/0.4 ML SYR SC SCH (08:31)
[2018-11-20] MEDS: ASPIRIN 81 MG CHEWABLE TAB PO SCH (08:31)
[2018-11-20] MEDS: metFORMIN HCL 500 MG TAB PO SCH ×2 (08:31→17:03)
[2018-11-20] MEDS: amLODIPine BESYLATE 5 MG TAB PO SCH (08:31)
[2018-11-20] MEDS: LISINOPRIL 10 MG TAB PO SCH (08:32)
[2018-11-20] MEDS: FERROUS SULFATE 325 MG TAB PO SCH (08:32)
[2018-11-20] MEDS: ACETAMINOPHEN 325 MG TAB PO PRN (08:37)
[2018-11-20] MEDS: TRIAMCINOLONE 0.1% 15GM OINT TP SCH ×2 (09:03→21:23)
[2018-11-20] MEDS: HYDROCODONE/APAP 5/325 TAB PO PRN (14:25)
--- NOTE | 2018-11-20 16:51 | SOAPPROG ---
SOAP Progress Note Assessment/Plan: Assessment: Spinal cord injury, T1 level, incomplete SAVANNAH class C. * Initial functional independence measure was 52 on 11/12/2018, improved to 59 as of 11/19/2018. Maximal assist for transfers, bed mobility. Self-propelled wheelchair 90 ft with standby assist. Standby assist for grooming and hygiene, upper body dressing and bathing. Maximal assist for bath and toilet transfers. Total assist for toileting aftercare.. * Continue PT and OT to optimize her mobility and activities of daily living. Complications of spinal cord injury with neurogenic bowel, neurogenic bladder. She will be treated with the neurogenic bowel and bladder protocols. * Lackey catheter was removed 11/09/2018. She is having intermittent catheterization per nursing. She is unable to participate herself yet as she does not have those stability to be seated upright in order to visualize the perineum and use her arms and hands. Discussed with patient 11/19/2018. Replaced Lackey catheter until she develops sufficient upper body stability to learn how to self cath. Neurogenic bowel * Over-treatment with laxatives. Received senna 7 tabs over 3 days prior to having 5 bowel movements in 1 day. * Continue Senna 1 tab daily. * Continue neurogenic bowel protocol with bisacodyl QD at 1600 and digital stimulation as needed. Chronic conditions of dyslipidemia, hypothyroidism, and diabetes mellitus type 2. She will be continued on medications for these conditions. * Initiate metformin 500 mg twice daily with meals beginning evening of 2018. Increased to 1000 mg twice daily evening of 11/14/2018. History of peripheral neuropathy. She was treated with nortriptyline 10 mg at [facility]. As she also reports insomnia, increased to 25 mg at bedtime on 11/09/2018.. * Gabapentin at 100 mg three times daily was increased to 200 mg three times daily on 11/12/2018. * Has worsening lower extremity neuropathic symptoms. Increase gabapentin to 300 mg three times daily starting 11/20/2018. Fatigue, likely due to poor sleep. Nursing has changed her to another mattress which she reports feels more comfortable, 11/14/2018. * Fatigue is much improved with improved sleep. Left knee pain. X-ray 11/14/2018 shows moderate to severe medial compartment osteoarthritis and a knee effusion. * Improved with better positioning in bed initiated by Physical therapy. * Continue acetaminophen p.r.n. and hydrocodone/acetaminophen p.r.n. Fluid overload seen in the hospital. * Has had furosemide 40 mg q.day for 4 days. Weight is unchanged. Discontinued furosemide starting 11/16/2018. * Check weight Monday and Monday. Hypertension. Intermittently above target, on amlodipine 5 mg q.day and furosemide 40 mg q.day. * Discontinue furosemide 11/16/2018. * Initiate lisinopril at 10 mg q.day starting 11/16/2018. She reports she was using it previously and had no adverse effects. Repeat BMP on 11/21/2018. * Had episode of lightheadedness 11/16/2018 but no hypotension was noted. Continue to monitor. Hemorrhoids. Initiated topical steroid preparation, 11/15/2018. Peripheral vascular disease. Continue aspirin. Skin lesions on the left toes, ischemic. Seen by wound nurse. They appear to be healing. Continue painting with Betadine twice daily until eschar is resolved. Hypomagnesemia. Continue magnesium oxide. Magnesium very slightly low on 2018. Anemia in the hospital. * Also had significant iron deficiency, so initiated iron sulfate 325 mg q.day starting 11/09/2018. * Stable on CBC 11/09/2018, with hemoglobin 8.3 and hematocrit 25.8. Recheck hemoglobin and hematocrit 11/21/2018 Obesity and diabetes mellitus will merit a consult with the dietitian for optimal nutrition. Prophylaxis. She has prolonged immobility and elevated risk for DVT. Will initiate enoxaparin at 40 mg subcutaneous daily. This can be discontinued if her mobility improves significantly or once she is 2-3 months out from the onset of her spinal cord injury. DISPOSITION: Goal is to achieve one-person assist level for mobility and ADLs. Discharge date set for 11/30/2018. Will not discharge home as she does not have enough help available. May discharge to home of nearby relatives. 11/20/18 16:49 Subjective: Reports that she was able to transfer more easily x2 today. Also better able to turn herself in bed. No longer having diarrhea. Otherwise without complaints. Objective: Vital Signs Temp Pulse Resp BP Pulse Ox 36.9 C 100 19 119/60 92 11/20/18 08:00 11/20/18 08:00 11/20/18 08:00 11/20/18 08:32 11/20/18 08:00 Laboratory Results 11/09/18 06:00 11/09/18 06:00 11/19/18 11/20/18 11/21/18 05:59 05:59 05:59 Intake Total 1640 1836 600 Output Total 1425 825 75 Balance 215 1011 525 Physical Exam - Physical Exam General Appearance: WD/WN, alert, no apparent distress, obese Respiratory: No respiratory distress, No accessory muscle use Cardiac/Chest: edema (1+ bilateral pretibial) Skin: normal color, warm/dry Neuro/Psych: alert, normal mood/affect, oriented x 3, motor weakness (Strength 3 to 4/5 on the right foot flexion and extension. 2/5 in the right quadriceps. On the left leg she has muscle activation in the quadriceps and for foot dorsiflexion and plantar flexion but motor strength is 1/5.) ICD10 Worksheet Patient Problems: Problems Problem Status Onset Spinal cord stroke Acute
[2018-11-20] MEDS: ATORVASTATIN CALCIUM 20 MG TAB PO SCH (21:22)
[2018-11-20] MEDS: NORTRIPTYLINE HCL 25 MG CAP PO SCH (21:22)
[2018-11-20] MEDS: SENNOSIDES/DOCUSATE SODIUM TAB PO SCH (21:22)
[2018-11-20] MEDS: INSULIN NPH HUMAN 100 UNITS/ML SYR SC SCH (21:23)
[2018-11-21] MEDS: LEVOTHYROXINE 75 MCG TAB PO SCH (05:05)
[2018-11-21] MEDS: ENOXAPARIN 40 MG/0.4 ML SYR SC SCH (08:16)
[2018-11-21] MEDS: metFORMIN HCL 500 MG TAB PO SCH ×2 (08:16→17:26)
[2018-11-21] MEDS: MAGNESIUM OXIDE 400 MG TAB PO SCH ×2 (08:16→17:26)
[2018-11-21] MEDS: LISINOPRIL 10 MG TAB PO SCH (08:16)
[2018-11-21] MEDS: GABAPENTIN 100 MG CAP PO SCH ×3 (08:16→21:03)
[2018-11-21] MEDS: amLODIPine BESYLATE 5 MG TAB PO SCH (08:16)
[2018-11-21] MEDS: FERROUS SULFATE 325 MG TAB PO SCH (08:17)
[2018-11-21] MEDS: ASPIRIN 81 MG CHEWABLE TAB PO SCH (08:17)
[2018-11-21] MEDS: TRIAMCINOLONE 0.1% 15GM OINT TP SCH ×2 (08:18→21:00)
[2018-11-21 09:05] LABS: PLATELET COUNT 232 10^3/uL (150-400)
--- NOTE | 2018-11-21 12:40 | SOAPPROG ---
SOAP Progress Note Assessment/Plan: Assessment: Spinal cord injury, T1 level, incomplete SAVANNAH class C. * Initial functional independence measure was 52 on 11/12/2018, improved to 59 as of 11/19/2018. Maximal assist for transfers, bed mobility. Self-propelled wheelchair 90 ft with standby assist. Standby assist for grooming and hygiene, upper body dressing and bathing. Maximal assist for bath and toilet transfers. Total assist for toileting aftercare.. * Continue PT and OT to optimize her mobility and activities of daily living. Complications of spinal cord injury with neurogenic bowel, neurogenic bladder. She will be treated with the neurogenic bowel and bladder protocols. * Lackey catheter was removed 11/09/2018. She is having intermittent catheterization per nursing. She is unable to participate herself yet as she does not have those stability to be seated upright in order to visualize the perineum and use her arms and hands. Discussed with patient 11/19/2018. Replaced Lackey catheter until she develops sufficient upper body stability to learn how to self cath. Neurogenic bowel * Over-treatment with laxatives. Received senna 7 tabs over 3 days prior to having 5 bowel movements in 1 day. * Continue Senna 1 tab daily. * Continue neurogenic bowel protocol with bisacodyl QD at 1600 and digital stimulation as needed. Chronic conditions of dyslipidemia, hypothyroidism, and diabetes mellitus type 2. She will be continued on medications for these conditions. * Initiate metformin 500 mg twice daily with meals beginning evening of 2018. Increased to 1000 mg twice daily evening of 11/14/2018. History of peripheral neuropathy. She was treated with nortriptyline 10 mg at h.s. As she also reports insomnia, increased to 25 mg at bedtime on 11/09/2018.. * Gabapentin at 100 mg three times daily was increased to 200 mg three times daily on 11/12/2018. * Has worsening lower extremity neuropathic symptoms. Increased gabapentin to 300 mg three times daily starting 11/20/2018. Fatigue, likely due to poor sleep. Nursing has changed her to another mattress which she reports feels more comfortable, 11/14/2018. * Fatigue is much improved with improved sleep. Left knee pain. X-ray 11/14/2018 shows moderate to severe medial compartment osteoarthritis and a knee effusion. * Improved with better positioning in bed initiated by Physical therapy. * Continue acetaminophen p.r.n. and hydrocodone/acetaminophen p.r.n. Fluid overload seen in the hospital. * Has had furosemide 40 mg q.day for 4 days. Weight is unchanged. Discontinued furosemide starting 11/16/2018. * Check weight Monday and Monday. Hypertension. Intermittently above target, on amlodipine 5 mg q.day and furosemide 40 mg q.day. * Discontinue furosemide 11/16/2018. * Initiate lisinopril at 10 mg q.day starting 11/16/2018. She reports she was using it previously and had no adverse effects. Repeat BMP on 11/21/2018 with normal renal function. * Had episode of lightheadedness 11/16/2018 but no hypotension was noted. Continue to monitor. Hemorrhoids. Initiated topical steroid preparation, 11/15/2018. Peripheral vascular disease. Continue aspirin. Skin lesions on the left toes, ischemic. Seen by wound nurse. They appear to be healing. Continue painting with Betadine twice daily until eschar is resolved. Hypomagnesemia. Continue magnesium oxide. Magnesium very slightly low on 2018. Anemia in the hospital. * Also had significant iron deficiency, so initiated iron sulfate 325 mg q.day starting 11/09/2018. * Stable on CBC 11/09/2018, with hemoglobin 8.3 and hematocrit 25.8. Improving on CBC 11/21/2018. Obesity and diabetes mellitus will merit a consult with the dietitian for optimal nutrition. Prophylaxis. She has prolonged immobility and elevated risk for DVT. Will initiate enoxaparin at 40 mg subcutaneous daily. This can be discontinued if her mobility improves significantly or once she is 2-3 months out from the onset of her spinal cord injury. DISPOSITION: Goal is to achieve one-person assist level for mobility and ADLs. Discharge date set for 11/30/2018. Will not discharge home as she does not have enough help available. May discharge to home of nearby relatives. 11/21/18 12:38 Subjective: Sleep was interrupted for repositioning but overall she feels she had adequate sleep. She is not in pain. No cough or dyspnea. Neuropathic symptoms on the lower legs are improved with increased dose of gabapentin. Objective: Vital Signs Temp Pulse Resp BP Pulse Ox 36.9 C 110 H 18 126/58 H 92 11/21/18 05:55 11/21/18 08:00 11/21/18 08:00 11/21/18 08:16 11/21/18 08:00 Laboratory Results 11/21/18 06:00 11/21/18 06:00 11/20/18 11/21/18 11/22/18 05:59 05:59 05:59 Intake Total 1836 1000 360 Output Total 825 1375 Balance 1011 -375 360 Physical Exam - Physical Exam General Appearance: WD/WN, alert, no apparent distress Respiratory: No respiratory distress, No accessory muscle use Cardiac/Chest: edema (1+ bilateral lower extremity) Skin: normal color, warm/dry Neuro/Psych: alert, normal mood/affect, oriented x 3, motor weakness ICD10 Worksheet Patient Problems: Problems Problem Status Onset Spinal cord stroke Acute
[2018-11-21] MEDS ORDERED: BISACODYL 10 MG SUPP PR SCH (16:00)
[2018-11-21] MEDS: HYDROCODONE/APAP 5/325 TAB PO PRN (16:10)
[2018-11-21] MEDS ORDERED: HYDROCODONE/APAP 5/325 TAB PO ONE (18:00)
[2018-11-21] MEDS: ATORVASTATIN CALCIUM 20 MG TAB PO SCH (20:58)
[2018-11-21] MEDS: NORTRIPTYLINE HCL 25 MG CAP PO SCH (20:58)
[2018-11-21] MEDS: SENNOSIDES/DOCUSATE SODIUM TAB PO SCH (20:58)
[2018-11-21] MEDS: INSULIN NPH HUMAN 100 UNITS/ML SYR SC SCH (21:11)
[2018-11-22] MEDS: LEVOTHYROXINE 75 MCG TAB PO SCH (05:47)
[2018-11-22] MEDS: LISINOPRIL 10 MG TAB PO SCH (09:14)
[2018-11-22] MEDS: FERROUS SULFATE 325 MG TAB PO SCH (09:14)
[2018-11-22] MEDS: ENOXAPARIN 40 MG/0.4 ML SYR SC SCH (09:15)
[2018-11-22] MEDS: MAGNESIUM OXIDE 400 MG TAB PO SCH ×2 (09:15→18:17)
[2018-11-22] MEDS: ASPIRIN 81 MG CHEWABLE TAB PO SCH (09:15)
[2018-11-22] MEDS: GABAPENTIN 100 MG CAP PO SCH ×3 (09:15→20:57)
[2018-11-22] MEDS: metFORMIN HCL 500 MG TAB PO SCH ×2 (09:15→18:16)
[2018-11-22] MEDS: ACETAMINOPHEN 325 MG TAB PO PRN ×2 (09:24→18:17)
[2018-11-22] MEDS: amLODIPine BESYLATE 5 MG TAB PO SCH (09:26)
[2018-11-22] MEDS: HYDROCORTISONE 2.5% 30 GM CRTUBE TP PRN (09:30)
--- NOTE | 2018-11-22 13:32 | SOAPPROG ---
SOAP Progress Note Assessment/Plan: 77-year-old woman status post spinal cord injury infarct after surgery involving her abdominal aorta and renal arteries, reported level is T1, incomplete SAVANNAH C spinal cord injury with relatively preserved sensation compared to motor function. Impairments in mobility and self-care. Today's update: Discussed multiple issues with her in-depth including neurogenic bowel and bladder. Currently she failed a voiding trial and has a Lackey catheter which may be appropriate for intermediate term management, she would likely discharge home with a Lackey with follow-up with rehabilitation and Urology. Additionally, neurogenic bowel program has not been particularly effective for her, discussed with team and reinforced regularity. Getting an abdominal film to assess for impacted stool. Regarding neuropathic pain, increasing gabapentin slightly from 300 mg 3 times a day to 300 mg 4 times a day. Increasing insulin to 20 units daily from 18, monitoring closely. Patient was provided with a "yes you can" manual for spinal cord education. A total of 35 min was spent on the floor in the care of the patient, the majority of which was spent counseling coordination of care regarding sequelae of spinal cord injury and prevention of complications. Additional issues reviewed without change include dyslipidemia, hypothyroidism, fatigue, left knee pain, fluid overload, hypertension, hemorrhoids, peripheral vascular disease, skin lesions on toes, hypomagnesemia, anemia in the hospital, obesity, and DVT prophylaxis. 11/22/18 13:29 Subjective: Chief complaint: Irregular bowel movements No acute events overnight. Patient denies any new shortness of breath or chest pain, no new numbness, tingling, or weakness. She endorses frustration with her bowel movements and notes that she has some days where she has several bowel movements and then other days where she has none. She does not feel like she has had response to suppositories, but does feel like she has been responsive to digital stimulation. She can feel when she needs to have a bowel movement when stool enters the rectal vault. She feels that that point it is an urgent issue. Denies incontinence. She failed a voiding trial recently and currently has a Lackey for bladder management. She has done intermittent catheterization in the past approximately 20 years ago, does not feel that she could doing very well at this point. Staff feels that she is unable to manage her clothing well enough to do intermittent catheterization reliably. She also endorses ongoing neuropathic leg pain, improved with gabapentin but still present. Discussed bowel program with staff, they feel that a 6:00 a.m. Bowel program would be reasonable. Objective: Vital Signs Temp Pulse Resp BP Pulse Ox 37.0 C 106 H 16 131/62 H 93 11/22/18 05:47 11/22/18 05:47 11/22/18 05:47 11/22/18 09:26 11/22/18 05:47 Laboratory Results 11/21/18 06:00 11/21/18 06:00 11/21/18 11/22/18 11/23/18 05:59 05:59 05:59 Intake Total 1000 900 Output Total 1375 1350 Balance -375 -450 Physical Exam - Physical Exam General Appearance: WD/WN, alert, no apparent distress EENT: No scleral icterus (R), No scleral icterus (L) Respiratory: normal breath sounds, No respiratory distress Cardiac/Chest: normal peripheral pulses, regular rate, rhythm, No edema Abdomen: non-tender, distended Rectal: other (Sensation present, trace voluntary sphincter contraction), No normal rectal tone (Slightly low, does have a closed sphincter), No mass, No tenderness Skin: normal color, warm/dry, No cyanosis, No diaphoresis Extremities: No pedal edema, No swelling Neuro/Psych: alert, normal mood/affect, oriented x 3, other (Paraplegia, detailed exam not performed today regarding motor function. She endorsed relatively preserved sensory function) ICD10 Worksheet Patient Problems: Problems Problem Status Onset Spinal cord stroke Acute
[2018-11-22] MEDS: HYDROCODONE/APAP 5/325 TAB PO PRN (18:17)
[2018-11-22] MEDS: ATORVASTATIN CALCIUM 20 MG TAB PO SCH (20:57)
[2018-11-22] MEDS: INSULIN NPH HUMAN 100 UNITS/ML SYR SC SCH (20:57)
[2018-11-22] MEDS: SENNOSIDES/DOCUSATE SODIUM TAB PO SCH (20:57)
[2018-11-22] MEDS: NORTRIPTYLINE HCL 25 MG CAP PO SCH (20:58)
[2018-11-22] MEDS: TRIAMCINOLONE 0.1% 15GM OINT TP SCH ×2 (20:59→21:00)
[2018-11-23] MEDS: GABAPENTIN 100 MG CAP PO SCH ×4 (05:33→21:22)
[2018-11-23] MEDS: LEVOTHYROXINE 75 MCG TAB PO SCH (05:33)
[2018-11-23] MEDS: ACETAMINOPHEN 325 MG TAB PO PRN (05:34)
[2018-11-23] MEDS: BISACODYL 10 MG SUPP PR SCH (05:34)
[2018-11-23] MEDS: MAGNESIUM OXIDE 400 MG TAB PO SCH ×2 (09:13→17:34)
[2018-11-23] MEDS: metFORMIN HCL 500 MG TAB PO SCH ×2 (09:14→17:33)
[2018-11-23] MEDS: ASPIRIN 81 MG CHEWABLE TAB PO SCH (09:14)
[2018-11-23] MEDS: LISINOPRIL 10 MG TAB PO SCH (09:14)
[2018-11-23] MEDS: FERROUS SULFATE 325 MG TAB PO SCH (09:14)
[2018-11-23] MEDS: amLODIPine BESYLATE 5 MG TAB PO SCH (09:14)
[2018-11-23] MEDS: ENOXAPARIN 40 MG/0.4 ML SYR SC SCH (09:15)
[2018-11-23] MEDS: TRIAMCINOLONE 0.1% 15GM OINT TP SCH ×2 (09:22→20:25)
[2018-11-23] MEDS: HYDROCODONE/APAP 5/325 TAB PO PRN (11:50)
--- NOTE | 2018-11-23 12:41 | SOAPPROG ---
SOAP Progress Note Assessment/Plan: Assessment: Spinal cord injury, T1 level, incomplete SAVANNAH class C. * Initial functional independence measure was 52 on 11/12/2018, improved to 59 as of 11/19/2018. Maximal assist for transfers, bed mobility. Self-propelled wheelchair 90 ft with standby assist. Standby assist for grooming and hygiene, upper body dressing and bathing. Maximal assist for bath and toilet transfers. Total assist for toileting aftercare.. * Continue PT and OT to optimize her mobility and activities of daily living. Complications of spinal cord injury with neurogenic bowel, neurogenic bladder. She will be treated with the neurogenic bowel and bladder protocols. * Lackey catheter was removed 11/09/2018. She is having intermittent catheterization per nursing. She is unable to participate herself yet as she does not have those stability to be seated upright in order to visualize the perineum and use her arms and hands. Discussed with patient 11/19/2018. Replaced Lackey catheter until she develops sufficient upper body stability to learn how to self cath. Neurogenic bowel * Over-treatment with laxatives. Received senna 7 tabs over 3 days prior to having 5 bowel movements in 1 day. * Continue Senna 1 tab daily. * Continue neurogenic bowel protocol with bisacodyl QD; timing changed to 0600 beginning 11/23/2018. Digital stimulation as needed. Chronic conditions of dyslipidemia, hypothyroidism, and diabetes mellitus type 2. She will be continued on medications for these conditions. * Initiate metformin 500 mg twice daily with meals beginning evening of 2018. Increased to 1000 mg twice daily evening of 11/14/2018. * Insulin glargine increased from 18 units to 20 units on 11/22/2018. History of peripheral neuropathy. She was treated with nortriptyline 10 mg at h.s. As she also reports insomnia, increased to 25 mg at bedtime on 11/09/2018.. * Gabapentin at 100 mg three times daily was increased to 200 mg three times daily on 11/12/2018. * Has worsening lower extremity neuropathic symptoms. Increased gabapentin to 300 mg three times daily starting 11/20/2018, and to 300 mg 4 times a day on 11/22. Per her request, will change to 400 mg 3 times a day starting 11/23/2018. Fatigue, likely due to poor sleep. Nursing has changed her to another mattress which she reports feels more comfortable, 11/14/2018. * Fatigue is much improved with improved sleep. Left knee pain. X-ray 11/14/2018 shows moderate to severe medial compartment osteoarthritis and a knee effusion. * Improved with better positioning in bed initiated by Physical therapy. * Continue acetaminophen p.r.n. and hydrocodone/acetaminophen p.r.n. Fluid overload seen in the hospital. * Has had furosemide 40 mg q.day for 4 days. Weight is unchanged. Discontinued furosemide starting 11/16/2018. * Check weight Monday and Monday. Hypertension. Intermittently above target, on amlodipine 5 mg q.day and furosemide 40 mg q.day. * Discontinue furosemide 11/16/2018. * Initiate lisinopril at 10 mg q.day starting 11/16/2018. She reports she was using it previously and had no adverse effects. Repeat BMP on 11/21/2018 with normal renal function. * Had episode of lightheadedness 11/16/2018 but no hypotension was noted. Continue to monitor. Hemorrhoids. Initiated topical steroid preparation, 11/15/2018. Peripheral vascular disease. Continue aspirin. Skin lesions on the left toes, ischemic. Seen by wound nurse. They appear to be healing. Continue painting with Betadine twice daily until eschar is resolved. Hypomagnesemia. Continue magnesium oxide. Magnesium very slightly low on 2018. Anemia in the hospital. * Also had significant iron deficiency, so initiated iron sulfate 325 mg q.day starting 11/09/2018. * Stable on CBC 11/09/2018, with hemoglobin 8.3 and hematocrit 25.8. Improving on CBC 11/21/2018. Obesity and diabetes mellitus will merit a consult with the dietitian for optimal nutrition. Prophylaxis. She has prolonged immobility and elevated risk for DVT. Will initiate enoxaparin at 40 mg subcutaneous daily. This can be discontinued if her mobility improves significantly or once she is 2-3 months out from the onset of her spinal cord injury. DISPOSITION: Goal is to achieve one-person assist level for mobility and ADLs. Discharge date set for 11/30/2018. Will not discharge home as she does not have enough help available. May discharge to home of nearby relatives. 11/23/18 13:22 Subjective: Feels chilled this morning. Says she feels chilled from time to time and this does not seem unusual to her. She denies cough or dyspnea. She has not felt feverish. She denies urinary symptoms. Otherwise without complaints. Subsequently chills have resolved and she does not feel ill. Requests gabapentin 400 mg 3 times a day rather than 300 mg 4 times a day. Objective: Vital Signs Temp Pulse Resp BP Pulse Ox 36.7 C 94 18 127/61 H 93 11/23/18 05:51 11/23/18 05:51 11/23/18 05:51 11/23/18 05:51 11/23/18 05:51 Laboratory Results 11/21/18 06:00 11/21/18 06:00 11/22/18 11/23/18 11/24/18 05:59 05:59 05:59 Intake Total 900 1220 Output Total 1350 1800 Balance -450 -580 Physical Exam - Physical Exam General Appearance: WD/WN, alert, no apparent distress Respiratory: normal breath sounds, No crackles, No rhonchi, No wheezing Cardiac/Chest: regular rate, rhythm, edema (1+ bilateral pretibial), No diastolic murmur, No systolic murmur Skin: normal color, warm/dry Neuro/Psych: alert, normal mood/affect, oriented x 3, motor weakness (Able to roll in bed independently. Lower extremity weakness.) ICD10 Worksheet Patient Problems: Problems Problem Status Onset Spinal cord stroke Acute
[2018-11-23] MEDS: ATORVASTATIN CALCIUM 20 MG TAB PO SCH (21:22)
[2018-11-23] MEDS: NORTRIPTYLINE HCL 25 MG CAP PO SCH (21:23)
[2018-11-23] MEDS: INSULIN NPH HUMAN 100 UNITS/ML SYR SC SCH (21:23)
[2018-11-23] MEDS: SENNOSIDES/DOCUSATE SODIUM TAB PO SCH (21:23)
[2018-11-24] MEDS: LEVOTHYROXINE 75 MCG TAB PO SCH (05:53)
[2018-11-24] MEDS: BISACODYL 10 MG SUPP PR SCH (05:53)
[2018-11-24] MEDS: ACETAMINOPHEN 325 MG TAB PO PRN ×3 (08:06→23:14)
[2018-11-24] MEDS: LIDOCAINE 4%/MENTHOL 1% PATCH TD SCH (08:07)
[2018-11-24] MEDS: GABAPENTIN 100 MG CAP PO SCH ×3 (08:08→20:37)
[2018-11-24] MEDS: MAGNESIUM OXIDE 400 MG TAB PO SCH ×2 (08:08→17:20)
[2018-11-24] MEDS: metFORMIN HCL 500 MG TAB PO SCH ×2 (08:08→17:20)
[2018-11-24] MEDS: amLODIPine BESYLATE 5 MG TAB PO SCH (08:09)
[2018-11-24] MEDS: LISINOPRIL 10 MG TAB PO SCH (08:09)
[2018-11-24] MEDS: ASPIRIN 81 MG CHEWABLE TAB PO SCH (08:09)
[2018-11-24] MEDS: FERROUS SULFATE 325 MG TAB PO SCH (08:10)
[2018-11-24] MEDS: ENOXAPARIN 40 MG/0.4 ML SYR SC SCH (08:21)
[2018-11-24] MEDS: TRIAMCINOLONE 0.1% 15GM OINT TP SCH ×2 (09:34→20:39)
--- NOTE | 2018-11-24 09:49 | SOAPPROG ---
SOAP Progress Note Assessment/Plan: Spinal cord injury, T1 level, incomplete SAVANNAH class C. SHE HAS SOME ACTIVE RECRUITMENT OF THE RIGHT AND LEFT ANKLE DORSIFLEXORS AND PLANTAR FLEXORS, CURRENTLY NOT FUNCTIONAL. NO ACTIVE RECRUITMENT OF QUADRICEPS, HAMSTRINGS OR HIP FLEXORS. PATIENT ENCOURAGED TO PERFORM ACTIVE ANKLE DORSIFLEXION AND PLANTAR FLEXION DURING REST PERIODS AND BETWEEN THERAPY SESSIONS. * Initial functional independence measure was 52 on 11/12/2018, improved to 59 as of 11/19/2018. Maximal assist for transfers, bed mobility. Self-propelled wheelchair 90 ft with standby assist. Standby assist for grooming and hygiene, upper body dressing and bathing. Maximal assist for bath and toilet transfers. Total assist for toileting aftercare.. * Continue PT and OT to optimize her mobility and activities of daily living. Complications of spinal cord injury with neurogenic bowel, neurogenic bladder. She will be treated with the neurogenic bowel and bladder protocols. * Lackey catheter was removed 11/09/2018. She is having intermittent catheterization per nursing. She is unable to participate herself yet as she does not have those stability to be seated upright in order to visualize the perineum and use her arms and hands. Discussed with patient 11/19/2018. Replaced Lackey catheter until she develops sufficient upper body stability to learn how to self cath. Neurogenic bowel * Over-treatment with laxatives. Received senna 7 tabs over 3 days prior to having 5 bowel movements in 1 day. * Continue Senna 1 tab daily. * Continue neurogenic bowel protocol with bisacodyl QD; timing changed to 0600 beginning 11/23/2018. Digital stimulation as needed. Chronic conditions of dyslipidemia, hypothyroidism, and diabetes mellitus type 2. She will be continued on medications for these conditions. * Initiate metformin 500 mg twice daily with meals beginning evening of 2018. Increased to 1000 mg twice daily evening of 11/14/2018. * Insulin glargine increased from 18 units to 20 units on 11/22/2018. History of peripheral neuropathy. She was treated with nortriptyline 10 mg at h.s. As she also reports insomnia, increased to 25 mg at bedtime on 11/09/2018.. * Gabapentin at 100 mg three times daily was increased to 200 mg three times daily on 11/12/2018. * Has worsening lower extremity neuropathic symptoms. Increased gabapentin to 300 mg three times daily starting 11/20/2018, and to 300 mg 4 times a day on 11/22. Per her request, will change to 400 mg 3 times a day starting 2018. SHE DOES NOT FEEL THAT HER CURRENT PAIN LEVEL WARRANTS INCREASE IN GABAPENTIN DOSAGE AT THIS TIME. Fatigue, likely due to poor sleep. Nursing has changed her to another mattress which she reports feels more comfortable, 11/14/2018. * Fatigue is much improved with improved sleep. SHE REPORTS INSOMNIA SECONDARY TO BEING AWAKENED Q 2 HR AT NIGHT FOR TURNING TO PREVENT PRESSURE SORES. SHE CURRENTLY DENIES DAYTIME SLEEPINESS. Left knee pain. X-ray 11/14/2018 shows moderate to severe medial compartment osteoarthritis and a knee effusion. * Improved with better positioning in bed initiated by Physical therapy. * Continue acetaminophen p.r.n. and hydrocodone/acetaminophen p.r.n. Fluid overload seen in the hospital. * Has had furosemide 40 mg q.day for 4 days. Weight is unchanged. Discontinued furosemide starting 11/16/2018. * Check weight Monday and Monday. WEIGHT FROM 11/24 A.M. IS PENDING Hypertension. Intermittently above target, on amlodipine 5 mg q.day and furosemide 40 mg q.day. BLOOD PRESSURE FROM 11/24 PENDING * Discontinue furosemide 11/16/2018. * Initiate lisinopril at 10 mg q.day starting 11/16/2018. She reports she was using it previously and had no adverse effects. Repeat BMP on 11/21/2018 with normal renal function. * Had episode of lightheadedness 11/16/2018 but no hypotension was noted. Continue to monitor. Hemorrhoids. Initiated topical steroid preparation, 11/15/2018. Peripheral vascular disease. Continue aspirin. Skin lesions on the left toes, ischemic. Seen by wound nurse. They appear to be healing. Continue painting with Betadine twice daily until eschar is resolved. CONTINUES TO HAVE SKIN SLOUGHING AROUND ISCHEMIC SITES. THIS APPEARS TO BE STABLE WITHOUT INCREASED AREAS OF ISCHEMIA. Hypomagnesemia. Continue magnesium oxide. Magnesium very slightly low on 2018. Anemia in the hospital. * Also had significant iron deficiency, so initiated iron sulfate 325 mg q.day starting 11/09/2018. * Stable on CBC 11/09/2018, with hemoglobin 8.3 and hematocrit 25.8. Improving on CBC 11/21/2018. Obesity and diabetes mellitus will merit a consult with the dietitian for optimal nutrition. Prophylaxis. She has prolonged immobility and elevated risk for DVT. Will initiate enoxaparin at 40 mg subcutaneous daily. This can be discontinued if her mobility improves significantly or once she is 2-3 months out from the onset of her spinal cord injury. DISPOSITION: Goal is to achieve one-person assist level for mobility and ADLs. Discharge date set for 11/30/2018. Will not discharge home as she does not have enough help available. May discharge to home of nearby relatives. 11/24/18 09:50 Subjective: PATIENT REPORTS SHE HAS INTERMITTENT PAIN IN THE RIGHT LOWER EXTREMITY THAT BEGINS IN THE ANKLE AND SHOOTS UPWARDS. SHE CURRENTLY DOES NOT FEEL THAT HER GABAPENTIN NEEDS TO BE INCREASED. Objective: Vital Signs Temp Pulse Resp BP Pulse Ox 36.8 C 102 H 16 123/63 H 94 11/23/18 20:00 11/23/18 20:00 11/23/18 20:00 11/23/18 20:00 11/23/18 20:00 Laboratory Results 11/21/18 06:00 11/21/18 06:00 11/23/18 11/24/18 11/25/18 05:59 05:59 05:59 Intake Total 1220 1200 Output Total 1800 1450 Balance -580 -250 Physical Exam - Physical Exam General Appearance: WD/WN, alert, no apparent distress, other (APPEARS COMFORTABLE LYING IN BED) Respiratory: lungs clear, normal breath sounds Cardiac/Chest: regular rate, rhythm, No edema Abdomen: normal bowel sounds, non-tender, soft, other (NO SUPRAPUBIC TENDERNESS) Skin: warm/dry, other (LEFT TOES CONTINUE TO HAVE SKIN SLOUGHING IN AREAS OF PREVIOUS ESCHARS. THESE AREAS ARE DRESSED WITH BETADINE. BOTH FEET ARE WARM,, NO ERYTHEMA, NO INDURATION. GOOD CAPILLARY REFILL) Extremities: No swelling, No Leeann's sign Neuro/Psych: alert, normal mood/affect, oriented x 3, motor weakness (LOWER EXTREMITY MOTOR EXAM CONSISTENT WITH PARAPLEGIA. 1+2-/5 RIGHT AND LEFT DORSIFLEXION AND PLANTAR FLEXION. NO ACTIVE RECRUITMENT OF THE QUADRICEPS OR HAMSTRINGS. NO ACTIVE HIP FLEXION) ICD10 Worksheet Patient Problems: Problems Problem Status Onset Spinal cord stroke Acute
[2018-11-24] MEDS: HYDROCODONE/APAP 5/325 TAB PO PRN (20:37)
[2018-11-24] MEDS: ATORVASTATIN CALCIUM 20 MG TAB PO SCH (20:37)
[2018-11-24] MEDS: NORTRIPTYLINE HCL 25 MG CAP PO SCH (20:37)
[2018-11-24] MEDS: SENNOSIDES/DOCUSATE SODIUM TAB PO SCH (20:37)
[2018-11-24] MEDS: INSULIN NPH HUMAN 100 UNITS/ML SYR SC SCH (20:37)
[2018-11-24] MEDS: PATCH REMOVAL 1 EA PATCH TD SCH (20:38)
[2018-11-25] MEDS: HYDROCODONE/APAP 5/325 TAB PO PRN ×2 (02:09→22:22)
[2018-11-25] MEDS: BISACODYL 10 MG SUPP PR SCH (05:21)
[2018-11-25] MEDS: LEVOTHYROXINE 75 MCG TAB PO SCH (05:21)
--- NOTE | 2018-11-25 08:37 | SOAPPROG ---
SOAP Progress Note Assessment/Plan: Spinal cord injury, T1 level, incomplete SAVANNAH class C. SHE HAS SOME ACTIVE RECRUITMENT OF THE RIGHT AND LEFT ANKLE DORSIFLEXORS AND PLANTAR FLEXORS, CURRENTLY NOT FUNCTIONAL. NO ACTIVE RECRUITMENT OF QUADRICEPS, HAMSTRINGS OR HIP FLEXORS. PATIENT ENCOURAGED TO PERFORM ACTIVE ANKLE DORSIFLEXION AND PLANTAR FLEXION DURING REST PERIODS AND BETWEEN THERAPY SESSIONS. * Initial functional independence measure was 52 on 11/12/2018, improved to 59 as of 11/19/2018. Maximal assist for transfers, bed mobility. Self-propelled wheelchair 90 ft with standby assist. Standby assist for grooming and hygiene, upper body dressing and bathing. Maximal assist for bath and toilet transfers. Total assist for toileting aftercare.. * Continue PT and OT to optimize her mobility and activities of daily living. Complications of spinal cord injury with neurogenic bowel, neurogenic bladder. She will be treated with the neurogenic bowel and bladder protocols. * Lackey catheter was removed 11/09/2018. She is having intermittent catheterization per nursing. She is unable to participate herself yet as she does not have those stability to be seated upright in order to visualize the perineum and use her arms and hands. Discussed with patient 11/19/2018. Replaced Lackey catheter until she develops sufficient upper body stability to learn how to self cath. Right ankle pain-will obtain x-rays today Neurogenic bowel * Over-treatment with laxatives. Received senna 7 tabs over 3 days prior to having 5 bowel movements in 1 day. * Continue Senna 1 tab daily. * Continue neurogenic bowel protocol with bisacodyl QD; timing changed to 0600 beginning 11/23/2018. Digital stimulation as needed. Chronic conditions of dyslipidemia, hypothyroidism, and diabetes mellitus type 2. She will be continued on medications for these conditions. * Initiate metformin 500 mg twice daily with meals beginning evening of 2018. Increased to 1000 mg twice daily evening of 11/14/2018. * Insulin glargine increased from 18 units to 20 units on 11/22/2018. History of peripheral neuropathy. She was treated with nortriptyline 10 mg at [facility]s. As she also reports insomnia, increased to 25 mg at bedtime on 11/09/2018.. * Gabapentin at 100 mg three times daily was increased to 200 mg three times daily on 11/12/2018. * Has worsening lower extremity neuropathic symptoms. Increased gabapentin to 300 mg three times daily starting 11/20/2018, and to 300 mg 4 times a day on 11/22. Per her request, will change to 400 mg 3 times a day starting 2018. She was given the option of having her nighttime dose of gabapentin increased however she is hesitant to proceed with this at this time. Will notify nursing that she changes her mind we can increase nighttime dose to 600. Fatigue, likely due to poor sleep. Nursing has changed her to another mattress which she reports feels more comfortable, 11/14/2018. * Fatigue is much improved with improved sleep. SHE REPORTS INSOMNIA SECONDARY TO BEING AWAKENED Q 2 HR AT NIGHT FOR TURNING TO PREVENT PRESSURE SORES. SHE CURRENTLY DENIES DAYTIME SLEEPINESS. Left knee pain. X-ray 11/14/2018 shows moderate to severe medial compartment osteoarthritis and a knee effusion. * Improved with better positioning in bed initiated by Physical therapy. * Continue acetaminophen p.r.n. and hydrocodone/acetaminophen p.r.n. Fluid overload seen in the hospital. * Has had furosemide 40 mg q.day for 4 days. Weight is unchanged. Discontinued furosemide starting 11/16/2018. * Check weight Monday and Monday. WEIGHT FROM 11/24 A.M. IS PENDING Hypertension. Intermittently above target, on amlodipine 5 mg q.day and furosemide 40 mg q.day. BLOOD PRESSURE FROM 11/24 PENDING * Discontinue furosemide 11/16/2018. * Initiate lisinopril at 10 mg q.day starting 11/16/2018. She reports she was using it previously and had no adverse effects. Repeat BMP on 11/21/2018 with normal renal function. * Had episode of lightheadedness 11/16/2018 but no hypotension was noted. Continue to monitor. Hemorrhoids. Initiated topical steroid preparation, 11/15/2018. Peripheral vascular disease. Continue aspirin. Skin lesions on the left toes, ischemic. Seen by wound nurse. They appear to be healing. Continue painting with Betadine twice daily until eschar is resolved. CONTINUES TO HAVE SKIN SLOUGHING AROUND ISCHEMIC SITES. THIS APPEARS TO BE STABLE WITHOUT INCREASED AREAS OF ISCHEMIA. Hypomagnesemia. Continue magnesium oxide. Magnesium very slightly low on 2018. Anemia in the hospital. * Also had significant iron deficiency, so initiated iron sulfate 325 mg q.day starting 11/09/2018. * Stable on CBC 11/09/2018, with hemoglobin 8.3 and hematocrit 25.8. Improving on CBC 11/21/2018. Obesity and diabetes mellitus will merit a consult with the dietitian for optimal nutrition. Prophylaxis. She has prolonged immobility and elevated risk for DVT. Will initiate enoxaparin at 40 mg subcutaneous daily. This can be discontinued if her mobility improves significantly or once she is 2-3 months out from the onset of her spinal cord injury. DISPOSITION: Goal is to achieve one-person assist level for mobility and ADLs. Discharge date set for 11/30/2018. Will not discharge home as she does not have enough help available. May discharge to home of nearby relatives. 11/24/18 09:50 11/25/18 08:36 11/25/18 08:37 Subjective: She reports that she slept poorly secondary to severe right ankle pain not relieved with pain medications. Objective: Vital Signs Temp Pulse Resp BP Pulse Ox 36.6 C 95 16 107/46 L 92 11/25/18 06:35 11/25/18 06:35 11/25/18 06:35 11/25/18 06:35 11/25/18 06:35 Laboratory Results 11/21/18 06:00 11/21/18 06:00 11/24/18 11/25/18 11/26/18 05:59 05:59 05:59 Intake Total 1200 850 Output Total 1450 1500 Balance -250 -650 Physical Exam - Physical Exam General Appearance: WD/WN, alert, no apparent distress Respiratory: lungs clear, normal breath sounds Abdomen: normal bowel sounds, non-tender, soft, other (No suprapubic tenderness) Skin: normal color, warm/dry, other (Skin sloughing left toes good vascularization) Extremities: other (Right ankle with mild soft tissue swelling medial and lateral malleoli more pronounced medially. Mild joint line tenderness.), No swelling, No Leeann's sign Neuro/Psych: normal mood/affect, oriented x 3, motor weakness (Unchanged lower extremity motor exam.) ICD10 Worksheet Patient Problems: Problems Problem Status Onset Spinal cord stroke Acute
[2018-11-25] MEDS: metFORMIN HCL 500 MG TAB PO SCH ×2 (09:39→17:22)
[2018-11-25] MEDS: amLODIPine BESYLATE 5 MG TAB PO SCH (09:43)
[2018-11-25] MEDS: ASPIRIN 81 MG CHEWABLE TAB PO SCH (09:43)
[2018-11-25] MEDS: FERROUS SULFATE 325 MG TAB PO SCH (09:43)
[2018-11-25] MEDS: MAGNESIUM OXIDE 400 MG TAB PO SCH ×2 (09:44→17:22)
[2018-11-25] MEDS: GABAPENTIN 100 MG CAP PO SCH ×3 (09:44→21:23)
[2018-11-25] MEDS: LISINOPRIL 10 MG TAB PO SCH (09:44)
[2018-11-25] MEDS: ACETAMINOPHEN 325 MG TAB PO PRN ×2 (09:45→22:21)
[2018-11-25] MEDS: ENOXAPARIN 40 MG/0.4 ML SYR SC SCH (09:50)
[2018-11-25] MEDS: LIDOCAINE 4%/MENTHOL 1% PATCH TD SCH (10:11)
[2018-11-25] MEDS: TRIAMCINOLONE 0.1% 15GM OINT TP SCH ×2 (10:12→21:22)
[2018-11-25] MEDS: DESITIN MAX STRENGTH OINTMENT TP PRN ×2 (16:57→23:38)
[2018-11-25] MEDS: HYDROCORTISONE 2.5% 30 GM CRTUBE TP PRN ×2 (16:59→23:38)
[2018-11-25] MEDS: PATCH REMOVAL 1 EA PATCH TD SCH (21:00)
[2018-11-25] MEDS: NORTRIPTYLINE HCL 25 MG CAP PO SCH (21:23)
[2018-11-25] MEDS: ATORVASTATIN CALCIUM 20 MG TAB PO SCH (21:23)
[2018-11-25] MEDS: INSULIN NPH HUMAN 100 UNITS/ML SYR SC SCH (21:23)
[2018-11-25] MEDS: SENNOSIDES/DOCUSATE SODIUM TAB PO SCH (21:23)
[2018-11-26] MEDS: LEVOTHYROXINE 75 MCG TAB PO SCH (05:03)
[2018-11-26] MEDS: BISACODYL 10 MG SUPP PR SCH (05:03)
[2018-11-26] MEDS: GABAPENTIN 100 MG CAP PO SCH ×3 (08:43→20:56)
[2018-11-26] MEDS: metFORMIN HCL 500 MG TAB PO SCH ×2 (08:43→17:19)
[2018-11-26] MEDS: ASPIRIN 81 MG CHEWABLE TAB PO SCH (08:44)
[2018-11-26] MEDS: MAGNESIUM OXIDE 400 MG TAB PO SCH ×2 (08:44→17:19)
[2018-11-26] MEDS: FERROUS SULFATE 325 MG TAB PO SCH (08:44)
[2018-11-26] MEDS: amLODIPine BESYLATE 5 MG TAB PO SCH (08:44)
[2018-11-26] MEDS: LISINOPRIL 10 MG TAB PO SCH (08:45)
[2018-11-26] MEDS: LIDOCAINE 4%/MENTHOL 1% PATCH TD SCH (08:48)
[2018-11-26] MEDS: ENOXAPARIN 40 MG/0.4 ML SYR SC SCH (08:48)
--- NOTE | 2018-11-26 09:38 | SOAPPROG ---
SOAP Progress Note Assessment/Plan: Spinal cord injury, T1 level, incomplete SAVANNAH class C. SHE HAS SOME ACTIVE RECRUITMENT OF THE RIGHT AND LEFT ANKLE DORSIFLEXORS AND PLANTAR FLEXORS, CURRENTLY NOT FUNCTIONAL. This morning she was able to fire her right quadriceps PATIENT ENCOURAGED TO PERFORM ACTIVE ANKLE DORSIFLEXION AND PLANTAR FLEXION DURING REST PERIODS AND BETWEEN THERAPY SESSIONS. * Initial functional independence measure was 52 on 11/12/2018, improved to 59 as of 11/19/2018. Maximal assist for transfers, bed mobility. Self-propelled wheelchair 90 ft with standby assist. Standby assist for grooming and hygiene, upper body dressing and bathing. Maximal assist for bath and toilet transfers. Total assist for toileting aftercare.. * Continue PT and OT to optimize her mobility and activities of daily living. Complications of spinal cord injury with neurogenic bowel, neurogenic bladder. She will be treated with the neurogenic bowel and bladder protocols. * Lackey catheter was removed 11/09/2018. She is having intermittent catheterization per nursing. She is unable to participate herself yet as she does not have those stability to be seated upright in order to visualize the perineum and use her arms and hands. Discussed with patient 11/19/2018. Replaced Lackey catheter until she develops sufficient upper body stability to learn how to self cath. Reports that she had a hard bowel movement earlier this morning. Discussed with nursing Marcus does not recommend stool softener due to previous over medication with bowel meds Right ankle pain-will obtain right ankle x-ray today. Right ankle swelling not increased compared to yesterday's exam. Neurogenic bowel * Over-treatment with laxatives. Received senna 7 tabs over 3 days prior to having 5 bowel movements in 1 day. * Continue Senna 1 tab daily. * Continue neurogenic bowel protocol with bisacodyl QD; timing changed to 0600 beginning 11/23/2018. Digital stimulation as needed. Chronic conditions of dyslipidemia, hypothyroidism, and diabetes mellitus type 2. She will be continued on medications for these conditions. * Initiate metformin 500 mg twice daily with meals beginning evening of 2018. Increased to 1000 mg twice daily evening of 11/14/2018. Blood glucose from 11/25 was 147. * Insulin glargine increased from 18 units to 20 units on 11/22/2018. History of peripheral neuropathy. She was treated with nortriptyline 10 mg at [facility]s. As she also reports insomnia, increased to 25 mg at bedtime on 11/09/2018.. * Gabapentin at 100 mg three times daily was increased to 200 mg three times daily on 11/12/2018. SHE DOES NOT REPORT NEUROPATHIC PAIN ON TODAY'S EXAM. * Has worsening lower extremity neuropathic symptoms. Increased gabapentin to 300 mg three times daily starting 11/20/2018, and to 300 mg 4 times a day on 11/22. Per her request, will change to 400 mg 3 times a day starting 2018. She was given the option of having her nighttime dose of gabapentin increased however she is hesitant to proceed with this at this time. Will notify nursing that she changes her mind we can increase nighttime dose to 600. Fatigue, likely due to poor sleep. Nursing has changed her to another mattress which she reports feels more comfortable, 11/14/2018. * Fatigue is much improved with improved sleep. SHE REPORTS INSOMNIA SECONDARY TO BEING AWAKENED Q 2 HR AT NIGHT FOR TURNING TO PREVENT PRESSURE SORES. SHE CURRENTLY DENIES DAYTIME SLEEPINESS. Left knee pain. X-ray 11/14/2018 shows moderate to severe medial compartment osteoarthritis and a knee effusion. * Improved with better positioning in bed initiated by Physical therapy. * Continue acetaminophen p.r.n. and hydrocodone/acetaminophen p.r.n. Fluid overload seen in the hospital. NO OVERT SIGNS OF FLUID OVERLOAD ON 11/26 EXAM * Has had furosemide 40 mg q.day for 4 days. Weight is unchanged. Discontinued furosemide starting 11/16/2018. * Check weight Monday and Monday. WEIGHT FROM 11/25 78.7 Hypertension. Intermittently above target, on amlodipine 5 mg q.day and furosemide 40 mg q.day. BLOOD PRESSURE FROM 11/26 127/52 * Discontinue furosemide 11/16/2018. * Initiate lisinopril at 10 mg q.day starting 11/16/2018. She reports she was using it previously and had no adverse effects. Repeat BMP on 11/21/2018 with normal renal function. * Had episode of lightheadedness 11/16/2018 but no hypotension was noted. Continue to monitor. Hemorrhoids. Initiated topical steroid preparation, 11/15/2018. Peripheral vascular disease. Continue aspirin. Skin lesions on the left toes, ischemic. Seen by wound nurse. They appear to be healing. Continue painting with Betadine twice daily until eschar is resolved. CONTINUES TO HAVE SKIN SLOUGHING AROUND ISCHEMIC SITES. TOES DRESSED WITH BETADINE. LOWER EXTREMITY SHOWED GOOD VASCULARIZATION. THIS APPEARS TO BE STABLE WITHOUT INCREASED AREAS OF ISCHEMIA. Hypomagnesemia. Continue magnesium oxide. Magnesium very slightly low on 2018. Anemia in the hospital. * Also had significant iron deficiency, so initiated iron sulfate 325 mg q.day starting 11/09/2018. * Stable on CBC 11/09/2018, with hemoglobin 8.3 and hematocrit 25.8. Improving on CBC 11/21/2018. Obesity and diabetes mellitus will merit a consult with the dietitian for optimal nutrition. Prophylaxis. She has prolonged immobility and elevated risk for DVT. Will initiate enoxaparin at 40 mg subcutaneous daily. This can be discontinued if her mobility improves significantly or once she is 2-3 months out from the onset of her spinal cord injury. DISPOSITION: Goal is to achieve one-person assist level for mobility and ADLs. Discharge date set for 11/30/2018. Will not discharge home as she does not have enough help available. May discharge to home of nearby relatives. 11/24/18 09:50 11/25/18 08:36 11/25/18 08:37 11/26/18 09:35 11/26/18 09:39 11/26/18 09:47 Subjective: No complaints this morning. No problems reported by nursing staff Objective: Vital Signs Temp Pulse Resp BP Pulse Ox 36.4 C 86 12 127/52 H 92 11/26/18 07:40 11/26/18 07:40 11/26/18 07:40 11/26/18 08:45 11/26/18 07:40 Laboratory Results 11/21/18 06:00 11/21/18 06:00 11/25/18 11/26/18 11/27/18 05:59 05:59 05:59 Intake Total 850 1200 Output Total 1500 1575 Balance -650 -375 Physical Exam - Physical Exam General Appearance: WD/WN, alert, no apparent distress Respiratory: lungs clear, normal breath sounds Abdomen: normal bowel sounds, non-tender, soft, other (No suprapubic tenderness) , No mass Skin: other (Left toes dressed with Betadine. Continue tissue sloughing. Good vascularization both lower extremities.) Neuro/Psych: motor weakness (Motor exam consistent with paraplegia however she does have active right and left dorsiflexion with some trace plantar flexion. She is firing the right quadriceps with 2+ 3-/5 strength) ICD10 Worksheet Patient Problems: Problems Problem Status Onset Spinal cord stroke Acute
[2018-11-26] MEDS: TRIAMCINOLONE 0.1% 15GM OINT TP SCH ×2 (10:09→21:00)
[2018-11-26] MEDS: HYDROCODONE/APAP 5/325 TAB PO PRN ×2 (17:19→23:34)
[2018-11-26] MEDS: SENNOSIDES/DOCUSATE SODIUM TAB PO SCH (20:56)
[2018-11-26] MEDS: ATORVASTATIN CALCIUM 20 MG TAB PO SCH (20:56)
[2018-11-26] MEDS: NORTRIPTYLINE HCL 25 MG CAP PO SCH (20:56)
[2018-11-26] MEDS: INSULIN NPH HUMAN 100 UNITS/ML SYR SC SCH (21:01)
[2018-11-26] MEDS: PATCH REMOVAL 1 EA PATCH TD SCH (23:41)
[2018-11-27] MEDS: BISACODYL 10 MG SUPP PR SCH (06:27)
[2018-11-27] MEDS: LEVOTHYROXINE 75 MCG TAB PO SCH (06:27)
[2018-11-27] MEDS: metFORMIN HCL 500 MG TAB PO SCH ×2 (07:45→17:32)
[2018-11-27] MEDS: MAGNESIUM OXIDE 400 MG TAB PO SCH ×2 (07:45→17:31)
[2018-11-27] MEDS: amLODIPine BESYLATE 5 MG TAB PO SCH (09:02)
[2018-11-27] MEDS: ENOXAPARIN 40 MG/0.4 ML SYR SC SCH (09:02)
[2018-11-27] MEDS: GABAPENTIN 100 MG CAP PO SCH ×3 (09:02→21:24)
[2018-11-27] MEDS: LISINOPRIL 10 MG TAB PO SCH (09:03)
[2018-11-27] MEDS: LIDOCAINE 4%/MENTHOL 1% PATCH TD SCH (09:03)
[2018-11-27] MEDS: FERROUS SULFATE 325 MG TAB PO SCH (09:03)
[2018-11-27] MEDS: ASPIRIN 81 MG CHEWABLE TAB PO SCH (09:03)
[2018-11-27] MEDS: TRIAMCINOLONE 0.1% 15GM OINT TP SCH (09:05)
--- NOTE | 2018-11-27 09:37 | PDOREHIP ---
Admission [facility] - Admission - 3 Day Assessment Period Admission Date/Day 1: 11/08/18 Day 2: 11/09/18 Day 3: 11/10/18 - Active Diagnoses Comorbidities and Co-existing Conditions at Admission: 48743. PVD or PAD Discharge [facility] - Discharge - 3 Day Assessment Period 2 Days Prior to Anticipated Discharge Date: 11/28/18 1 Day Prior to Anticipated Discharge Date: 11/29/18 Anticipated Discharge Date: 11/30/18 - Discharge Skin Conditions Unhealed Pressure Ulcer (1 or more/Stage 1 or >)-Discharge: 0. No # Stage 1 Pressure Ulcers-Discharge: 0 # Stage 2 Pressure Ulcers-Discharge: 0 # of These Stage 2 Pressure Ulcers Present on Admission: 0 # Stage 3 Pressure Ulcers-Discharge: 0 # of These Stage 3 Pressure Ulcers Present on Admission: 0 # Stage 4 Pressure Ulcers-Discharge: 0 # of These Stage 4 Pressure Ulcers Present on Admission: 0 # Unstageable Pressure Ulcers (Non-remove Dress)-Discharge: 0 # These Unstageable Pressure Ulcers (NRD)-Present on Admit: 0 # Unstageable Pressure Ulcers (Slough/Eschar)-Discharge: 0 # These Unstageable Pressure Ulcers(Slough) Present on Admit: 0 # Unstageable Pressure Ulcers (Deep Tissue Injury)-Discharge: 0 # These Unstageable Pressure Ulcers (DTI) Present on Admit: 0
--- NOTE | 2018-11-27 10:41 | SOAPPROG ---
SOAP Progress Note Assessment/Plan: 77-year-old woman status post spinal cord injury infarct after surgery involving her abdominal aorta and renal arteries, reported level is T1, incomplete SAVANNAH C spinal cord injury with relatively preserved sensation compared to motor function. Impairments in mobility and self-care. Today's update: Continue to make slow improvements from a rehabilitation standpoint, working through spinal cord education manual with good questions. Stopping tamsulosin as the bladder management plan going forward will be a Lackey catheter with follow up with Urology. Long-term care evaluation pending, goal to discharge to [facility] facility later this week. A total of 35 min was spent on the floor in the care of the patient, the majority of which was spent counseling coordination of care regarding sequelae of spinal cord injury and prevention of complications, and discharge planning. Additional issues reviewed without change include dyslipidemia, hypothyroidism, fatigue, left knee pain, fluid overload, hypertension, hemorrhoids, peripheral vascular disease, skin lesions on toes, hypomagnesemia, anemia in the hospital, obesity, and DVT prophylaxis. 11/22/18 13:29 11/27/18 10:38 Subjective: Chief complaint: Questions about spinal cord stroke No acute events overnight. Patient denies any new shortness of breath or chest pain, no new numbness, tingling, weakness. She continues to make progress in rehabilitation and feels okay about that. She still has questions about spinal cord stroke, she has been working through the spinal cord education material available to her but she does not feel it is necessarily addressing her particular etiology of spinal cord injury. Social work case that goal will be to discharge to [facility] facility later this week. Patient appreciates education and working towards independence. Counseled her about role of ambulation in overall recovery Objective: Vital Signs Temp Pulse Resp BP Pulse Ox 36.5 C 98 14 142/60 H 99 11/27/18 09:38 11/27/18 09:38 11/27/18 09:38 11/27/18 09:38 11/27/18 09:38 Laboratory Results 11/21/18 06:00 11/21/18 06:00 11/26/18 11/27/18 11/28/18 05:59 05:59 05:59 Intake Total 1200 2225 200 Output Total 1575 1700 Balance -375 525 200 Physical Exam - Physical Exam General Appearance: WD/WN, alert, no apparent distress EENT: No scleral icterus (R), No scleral icterus (L) Respiratory: No respiratory distress, No accessory muscle use Cardiac/Chest: regular rate, rhythm, No edema Abdomen: non-tender, soft, distended, No guarding Skin: normal color, warm/dry, other (Left foot with painted iodine on her toes) , No cyanosis, No diaphoresis Extremities: No pedal edema, No swelling Neuro/Psych: alert, normal mood/affect, motor weakness (1/5 in foot movement on the right, overall functional paraplegia), sensory deficit (Sensation mildly impaired, largely still intact however.) ICD10 Worksheet Patient Problems: Problems Problem Status Onset Spinal cord stroke Acute
[2018-11-27] MEDS: ACETAMINOPHEN 325 MG TAB PO PRN ×2 (11:41→21:05)
--- NOTE | 2018-11-27 14:15 | PDDCSUM ---
Discharge Summary Discharge Summary: Name: Elissa Arzate Admission date: 11/08/2018 Discharge date: 11/29/2018, anticipated Discharging physician: Jose Cruz Benavides MD, Arnold Jhaveri MD Admitting diagnosis: Ischemic spinal cord injury, incomplete Discharge diagnosis: Same Comorbid diagnoses: Neurogenic bowel, neurogenic bladder, neuropathic pain, dyslipidemia, hypothyroidism, diabetes type 2, fatigue, left knee pain, fluid overload status post diuresis, hypertension, hemorrhoids, peripheral vascular disease, skin lesions on toes, ischemic, hypomagnesemia, anemia, obesity. Multiple other in active medical issues per the history of present illness. Consultations: physical therapy, occupational therapy, speech language pathology , social work, dietary, wound care Procedures: X-ray of the left knee 11/14/2018 showed a small joint effusion with no acute osseous findings and degenerative changes including moderate to severe osteoarthritis in the medial compartment X-ray ankle on the right, 11/25/2017 showed mild soft tissue swelling of the right ankle no evidence for acute osseous abnormality KUB 11/22/2018 showed mild constipation. Upper abdominal surgical clips were present. Reason for admission: Please see the full history and physical by Dr. Arnold Jhaveri dated 11/08/2018 for full details, but briefly the patient was admitted from [facility] for a T1 SAVANNAH C spinal cord injury from ischemic cord. Patient infarcted the thoracic cord to the conus following an elective aortoiliac bypass graft which included reimplantation of 2 renal arteries, performed 09/14/2018 with acute bilateral lower extremity weakness afterwards. Patient underwent low intensity therapy at a nursing home facility and was ultimately readmitted to [facility] with complication including a small sacral ulcer and neurogenic bowel. She was disimpacted on 11/01/2018 and was ultimately discharged to inpatient rehabilitation for further rehab. Rehabilitation course: Goal for rehabilitation course was to decrease the burden of care and promote education and self guided care. She made progress in rehabilitation and was self propelling a wheelchair with standby assistance. She was also standby assistance for grooming and hygiene as well as upper body dressing and bathing. She still required considerable assistance for transfers and bed mobility as well as for bowel program. She was started on a regular bowel program including suppository daily and senna and docusate. She may have a combination of upper motor neuron and lower motor neuron bowel, she appeared to be somewhat responsive to suppositories, but should have a low threshold for manual disimpaction. Diabetes was controlled with metformin which was started this hospitalization as well as insulin NPH at 20 units daily. Peripheral neuropathy was treated with increased dose of nortriptyline at 25 mg at bedtime as well as gabapentin 400 mg 3 times a day with much improved symptoms. Regarding her neurogenic skin, she had turned every 2 hr which should be continued on discharge and no development of pressure ulcers during rehabilitation. She has multiple pain complaints including left knee pain and right ankle pain, diagnosed with moderate to severe osteoarthritis of the knee on x-ray, no osseous changes at the ankle however. She was unable to tolerate splinting at the ankle plantar flexors due to neuropathic pain, also was unable to tolerate abdominal binders for occasional orthostatic hypotension due to fibromyalgia. Blood pressure was controlled on amlodipine 5 mg daily and lisinopril 10 mg daily, furosemide was used to control fluid status and was ultimately discontinued on 11/16/2018. Hemorrhoids were treated with steroid preparation. Skin lesions of the left toes, ischemic were seen by the wound nurse and monitored. Toes were dressed with Betadine daily. For iron deficiency anemia she was started on iron sulfate this hospitalization as well. Magnesium was continued for previously diagnosed hypomagnesemia. Enoxaparin subcutaneous should be continued for 12 weeks status post onset of his spinal cord injury. She continues to have neurogenic bladder requiring Lackey and this should be followed up with Urology. She is potentially at risk of autonomic dysreflexia however this is likely a low risk. Please see associated recommendations for management of autonomic dysreflexia. Discharge plan: Discharging to nursing home facility for long-term care. She will continue on a regular diet with thin liquids, carb controlled 2000 calorie diet. She should get turned every 2 hr, pressure release every 15 min when in a chair. She requires a Elton for transfers. She should have skin checks twice a day. She should also continue with a Lackey catheter for neurogenic bladder to be followed up with Urology. Offloading heels should continue every evening as tolerated, paint eschar areas with Betadine twice a day on the left foot. Medications at discharge: Acetaminophen 650 mg orally every 6 hr as needed for pain Bisacodyl suppository 10 mg rectally every day at 6:00 a.m. Scheduled for neurogenic bowel Dextrose 50% of I will 25 g IV push as needed for hypoglycemia Ferrous sulfate 325 mg orally daily Gabapentin 400 mg orally 3 times daily Hydrocortisone 2.5% 1 application topically twice daily as needed for hemorrhoid pain Insulin NPH 20 units subcutaneously at bedtime Lidocaine 4%/menthol 1% 1 patch transdermally daily Lisinopril 10 mg orally daily Metformin 1000 mg orally twice a day with meals Nortriptyline 25 mg orally at bedtime Senna/docusate 1 tab orally at bedtime Zinc oxide 1 application topical every 4 hr as needed for rash Nystatin powder p.r.n. 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, please refer to autonomic dysreflexia recommendations Magnesium oxide 400 mg orally twice daily with meals Levothyroxine 75 mcg orally daily Hydrocodone acetaminophen 5/325 1 tab orally every 6 hr as needed for pain Enoxaparin 40 mg subcutaneous daily Atorvastatin 20 mg orally at bedtime Calcium carbonate 500 mg orally every 3 hr as needed for heartburn Acetaminophen 650 mg orally every 6 hr as needed Amlodipine 5 mg orally daily Albuterol 3 mL inhalation every 2 hr as needed for shortness of breath Aspirin 81 mg orally daily Triamcinolone 0.1% ointment 1 application topical twice daily Pending studies: None Issues to be addressed at follow-up: Follow-up neurogenic bowel and bladder with physical medicine rehabilitation as well as a neurologist. Follow-up surgical issue with her surgeon. Follow up: She should follow up with a Physical Medicine Rehabilitation provider, a Urology provider, as well as her surgeon.
[2018-11-27] MEDS: HYDROCODONE/APAP 5/325 TAB PO PRN ×2 (16:10→22:11)
[2018-11-27] MEDS: NORTRIPTYLINE HCL 25 MG CAP PO SCH (21:24)
[2018-11-27] MEDS: INSULIN NPH HUMAN 100 UNITS/ML SYR SC SCH (21:24)
[2018-11-27] MEDS: ATORVASTATIN CALCIUM 20 MG TAB PO SCH (21:24)
[2018-11-27] MEDS: SENNOSIDES/DOCUSATE SODIUM TAB PO SCH (21:24)
[2018-11-28] MEDS: TRIAMCINOLONE 0.1% 15GM OINT TP SCH ×3 (00:41→22:09)
[2018-11-28] MEDS: PATCH REMOVAL 1 EA PATCH TD SCH ×2 (00:49→21:08)
[2018-11-28] MEDS: BISACODYL 10 MG SUPP PR SCH (05:20)
[2018-11-28] MEDS: LEVOTHYROXINE 75 MCG TAB PO SCH (05:20)
[2018-11-28] MEDS: LIDOCAINE 4%/MENTHOL 1% PATCH TD SCH (08:59)
[2018-11-28] MEDS: ENOXAPARIN 40 MG/0.4 ML SYR SC SCH (09:01)
[2018-11-28] MEDS: GABAPENTIN 100 MG CAP PO SCH ×3 (09:01→21:06)
[2018-11-28] MEDS: amLODIPine BESYLATE 5 MG TAB PO SCH (09:02)
[2018-11-28] MEDS: FERROUS SULFATE 325 MG TAB PO SCH (09:02)
[2018-11-28] MEDS: MAGNESIUM OXIDE 400 MG TAB PO SCH ×2 (09:02→17:27)
[2018-11-28] MEDS: LISINOPRIL 10 MG TAB PO SCH (09:02)
[2018-11-28] MEDS: metFORMIN HCL 500 MG TAB PO SCH ×2 (09:02→17:27)
[2018-11-28] MEDS: ASPIRIN 81 MG CHEWABLE TAB PO SCH (09:02)
[2018-11-28] MEDS: HYDROCORTISONE 2.5% 30 GM CRTUBE TP PRN (09:04)
--- NOTE | 2018-11-28 09:30 | SOAPPROG ---
SOAP Progress Note Assessment/Plan: Spinal cord injury, T1 level, incomplete SAVANNAH class C. SHE HAS SOME ACTIVE RECRUITMENT OF THE RIGHT AND LEFT ANKLE DORSIFLEXORS AND PLANTAR FLEXORS, CURRENTLY NOT FUNCTIONAL. This is unchanged from serial exams. This morning she was able to fire her right quadriceps PATIENT ENCOURAGED TO PERFORM ACTIVE ANKLE DORSIFLEXION AND PLANTAR FLEXION DURING REST PERIODS AND BETWEEN THERAPY SESSIONS. * Initial functional independence measure was 52 on 11/12/2018, improved to 59 as of 11/19/2018. Maximal assist for transfers, bed mobility. Self-propelled wheelchair 90 ft with standby assist. Standby assist for grooming and hygiene, upper body dressing and bathing. Maximal assist for bath and toilet transfers. Total assist for toileting aftercare.. * Continue PT and OT to optimize her mobility and activities of daily living. Neurogenic bowel-current bowel program includes Dulcolax and Senokot-S. No current modifications to bowel program. Neurogenic bladder-patient has Lackey catheter in place. [facility] with Lackey in place. Chronic conditions of dyslipidemia, hypothyroidism, and diabetes mellitus type 2. She will be continued on medications for these conditions. * Initiate metformin 500 mg twice daily with meals beginning evening of 2018. Increased to 1000 mg twice daily evening of 11/14/2018. Blood glucose from 11/25 was 147. * Insulin glargine increased from 18 units to 20 units on 11/22/2018. Insulin dependent diabetes. Blood glucose from 11/27 184. Continue to monitor blood sugars daily. History of peripheral neuropathy. STABLE ON CURRENT DOSE OF GABAPENTIN 400 MG THREE TIMES DAILY. She was treated with nortriptyline 10 mg at h.s. As she also reports insomnia, increased to 25 mg at bedtime on 11/09/2018.. * Gabapentin at 100 mg three times daily was increased to 200 mg three times daily on 11/12/2018. SHE DOES NOT REPORT NEUROPATHIC PAIN ON TODAY'S EXAM. * Has worsening lower extremity neuropathic symptoms. Increased gabapentin to 300 mg three times daily starting 11/20/2018, and to 300 mg 4 times a day on 11/22. Per her request, will change to 400 mg 3 times a day starting 2018. She was given the option of having her nighttime dose of gabapentin increased however she is hesitant to proceed with this at this time. Will notify nursing that she changes her mind we can increase nighttime dose to 600. Fatigue, likely due to poor sleep. Nursing has changed her to another mattress which she reports feels more comfortable, 11/14/2018. * Fatigue is much improved with improved sleep. SHE REPORTS INSOMNIA SECONDARY TO BEING AWAKENED Q 2 HR AT NIGHT FOR TURNING TO PREVENT PRESSURE SORES. SHE CURRENTLY DENIES DAYTIME SLEEPINESS. Left knee pain. OF 11/28, NO COMPLAINTS OF LEFT KNEE PAIN. X-ray 11/14/2018 shows moderate to severe medial compartment osteoarthritis and a knee effusion. * Improved with better positioning in bed initiated by Physical therapy. * Continue acetaminophen p.r.n. and hydrocodone/acetaminophen p.r.n. RIGHT SHOULDER PAIN-FAIRLY NEW ONSET WHICH BEGAN 11/27. PATIENT ATTRIBUTES THIS TO WHEELCHAIR USE. OCCUPATIONAL THERAPY HAS BEEN TAPING. ROTATOR CUFF STRENGTHENING EXERCISES. PENDULUM EXERCISES. Fluid overload seen in the hospital. NO OVERT SIGNS OF FLUID OVERLOAD ON 11/28 EXAM * Has had furosemide 40 mg q.day for 4 days. Weight is unchanged. Discontinued furosemide starting 11/16/2018. * Check weight Monday and Monday. WEIGHT FROM 11/25 78.7 Hypertension. BLOOD PRESSURE FROM 11/28 113/57 Intermittently above target, on amlodipine 5 mg q.day and furosemide 40 mg q.day. * Discontinue furosemide 11/16/2018. * Initiate lisinopril at 10 mg q.day starting 11/16/2018. She reports she was using it previously and had no adverse effects. Repeat BMP on 11/21/2018 with normal renal function. * Had episode of lightheadedness 11/16/2018 but no hypotension was noted. Continue to monitor. Hemorrhoids. Initiated topical steroid preparation, 11/15/2018. Peripheral vascular disease. Continue aspirin. Skin lesions on the left toes, ischemic. Seen by wound nurse. They appear to be healing. Continue painting with Betadine twice daily until eschar is resolved. CONTINUES TO HAVE SKIN SLOUGHING AROUND ISCHEMIC SITES. TOES DRESSED WITH BETADINE. LOWER EXTREMITY SHOWED GOOD VASCULARIZATION. THIS APPEARS TO BE STABLE WITHOUT INCREASED AREAS OF ISCHEMIA. Hypomagnesemia. Continue magnesium oxide. Magnesium very slightly low on 2018. Anemia in the hospital. * Also had significant iron deficiency, so initiated iron sulfate 325 mg q.day starting 11/09/2018. * Stable on CBC 11/09/2018, with hemoglobin 8.3 and hematocrit 25.8. Improving on CBC 11/21/2018. Obesity and diabetes mellitus will merit a consult with the dietitian for optimal nutrition. Prophylaxis. She has prolonged immobility and elevated risk for DVT. Will initiate enoxaparin at 40 mg subcutaneous daily. This can be discontinued if her mobility improves significantly or once she is 2-3 months out from the onset of her spinal cord injury. DISPOSITION: Goal is to achieve one-person assist level for mobility and ADLs. Discharge date set for 11/30/2018. Will not discharge home as she does not have enough help available. May discharge to home of nearby relatives. 11/28/18 09:30 Subjective: No complaints this morning. She reports decreased right ankle pain this morning. She does report fairly new onset of right shoulder pain which she attributes to wheelchair use. Occupational therapy has been taping the right shoulder with some relief. Objective: Vital Signs Temp Pulse Resp BP Pulse Ox 36.9 C 91 14 113/57 L 95 11/28/18 08:00 11/28/18 08:00 11/28/18 08:00 11/28/18 08:00 11/28/18 08:00 Laboratory Results 11/21/18 06:00 11/21/18 06:00 11/27/18 11/28/18 11/29/18 05:59 05:59 05:59 Intake Total 2225 980 Output Total 1700 750 Balance 525 230 Physical Exam - Physical Exam General Appearance: WD/WN, alert, no apparent distress Respiratory: lungs clear, normal breath sounds Abdomen: normal bowel sounds, non-tender, other (No suprapubic tenderness.) Skin: other (Left toe ischemic necrosis, toes dressed with Betadine. Continues with tissue sloughing. Good capillary refill.) Extremities: No swelling, No Leeann's sign Neuro/Psych: motor weakness (No change in lower extremity motor exam when compared to previous serial motor exams. She has 1+ 2-/5 tibialis anterior, with greater strength on the right. Trace right and left ankle plantar flexion. Trace right quadriceps.) ICD10 Worksheet Patient Problems: Problems Problem Status Onset Spinal cord stroke Acute
[2018-11-28] MEDS: ACETAMINOPHEN 325 MG TAB PO PRN ×2 (11:45→18:40)
[2018-11-28] MEDS: HYDROCODONE/APAP 5/325 TAB PO PRN ×2 (11:45→18:41)
[2018-11-28] MEDS: ATORVASTATIN CALCIUM 20 MG TAB PO SCH (21:05)
[2018-11-28] MEDS: SENNOSIDES/DOCUSATE SODIUM TAB PO SCH (21:06)
[2018-11-28] MEDS: NORTRIPTYLINE HCL 25 MG CAP PO SCH (21:06)
[2018-11-28] MEDS: INSULIN NPH HUMAN 100 UNITS/ML SYR SC SCH (21:07)
[2018-11-29] MEDS: BISACODYL 10 MG SUPP PR SCH (06:39)
[2018-11-29] MEDS: LEVOTHYROXINE 75 MCG TAB PO SCH (06:39)
[2018-11-29] MEDS: MAGNESIUM OXIDE 400 MG TAB PO SCH ×2 (08:14→18:11)
[2018-11-29] MEDS: FERROUS SULFATE 325 MG TAB PO SCH (08:14)
[2018-11-29] MEDS: LISINOPRIL 10 MG TAB PO SCH (08:14)
[2018-11-29] MEDS: amLODIPine BESYLATE 5 MG TAB PO SCH (08:14)
[2018-11-29] MEDS: ASPIRIN 81 MG CHEWABLE TAB PO SCH (08:15)
[2018-11-29] MEDS: ENOXAPARIN 40 MG/0.4 ML SYR SC SCH (08:15)
[2018-11-29] MEDS: metFORMIN HCL 500 MG TAB PO SCH ×2 (08:15→18:11)
[2018-11-29] MEDS: GABAPENTIN 100 MG CAP PO SCH ×3 (08:15→20:22)
[2018-11-29] MEDS: LIDOCAINE 4%/MENTHOL 1% PATCH TD SCH (08:16)
[2018-11-29] MEDS: TRIAMCINOLONE 0.1% 15GM OINT TP SCH ×2 (09:52→20:23)
--- NOTE | 2018-11-29 15:14 | SOAPPROG ---
SOAP Progress Note Assessment/Plan: Assessment: Spinal cord injury, T1 level, incomplete SAVANNAH class C. * Initial functional independence measure was 52 on 11/12/2018, improved to 59 as of 11/19/2018, and to 62 as of 11/26/2018.. Maximal assist for transfers, bed mobility. Self-propelled wheelchair 90 ft with standby assist. Standby assist for grooming and hygiene, upper body dressing and bathing. Maximal assist for bath and toilet transfers. Total assist for toileting aftercare.. * Continue PT and OT to optimize her mobility and activities of daily living. Complications of spinal cord injury with neurogenic bowel, neurogenic bladder. She will be treated with the neurogenic bowel and bladder protocols. * Lackey catheter was removed 11/09/2018. She is having intermittent catheterization per nursing. She is unable to participate herself yet as she does not have those stability to be seated upright in order to visualize the perineum and use her arms and hands. Discussed with patient 11/19/2018. Replaced Lackey catheter until she develops sufficient upper body stability to learn how to self cath. Neurogenic bowel * Continue Senna 1 tab daily. * Continue neurogenic bowel protocol with bisacodyl QD; timing changed to 0600 beginning 11/23/2018. Digital stimulation as needed. Chronic conditions of dyslipidemia, hypothyroidism, and diabetes mellitus type 2. She will be continued on medications for these conditions. * Initiate metformin 500 mg twice daily with meals beginning evening of 2018. Increased to 1000 mg twice daily evening of 11/14/2018. * Insulin glargine increased from 18 units to 20 units on 11/22/2018. History of peripheral neuropathy. She was treated with nortriptyline 10 mg at h.s. As she also reports insomnia, increased to 25 mg at bedtime on 11/09/2018.. * Gabapentin at 100 mg three times daily was increased to 200 mg three times daily on 11/12/2018. * Has worsening lower extremity neuropathic symptoms. Increased gabapentin to 300 mg three times daily starting 11/20/2018, and to 300 mg 4 times a day on 11/22. Per her request, will change to 400 mg 3 times a day starting 11/23/2018. Fatigue, likely due to poor sleep. Nursing has changed her to another mattress which she reports feels more comfortable, 11/14/2018. * Fatigue is much improved with improved sleep. Left knee pain. X-ray 11/14/2018 shows moderate to severe medial compartment osteoarthritis and a knee effusion. * Improved with better positioning in bed initiated by Physical therapy. * Continue acetaminophen p.r.n. and hydrocodone/acetaminophen p.r.n. Fluid overload seen in the hospital. * Has had furosemide 40 mg q.day for 4 days. Weight is unchanged. Discontinued furosemide starting 11/16/2018. * Check weight Monday and Monday. Hypertension. Intermittently above target, on amlodipine 5 mg q.day and furosemide 40 mg q.day. * Discontinue furosemide 11/16/2018. * Initiate lisinopril at 10 mg q.day starting 11/16/2018. She reports she was using it previously and had no adverse effects. Repeat BMP on 11/21/2018 with normal renal function. * Had episode of lightheadedness 11/16/2018 but no hypotension was noted. Continue to monitor. Hemorrhoids. Initiated topical steroid preparation, 11/15/2018. Peripheral vascular disease. Continue aspirin. Skin lesions on the left toes, ischemic. Seen by wound nurse. They appear to be healing. Continue painting with Betadine twice daily until eschar is resolved. Hypomagnesemia. Continue magnesium oxide. Magnesium very slightly low on 2018. Anemia in the hospital. * Also had significant iron deficiency, so initiated iron sulfate 325 mg q.day starting 11/09/2018. * Stable on CBC 11/09/2018, with hemoglobin 8.3 and hematocrit 25.8. Improving on CBC 11/21/2018. Obesity and diabetes mellitus will merit a consult with the dietitian for optimal nutrition. Prophylaxis. She has prolonged immobility and elevated risk for DVT. Will initiate enoxaparin at 40 mg subcutaneous daily. This can be discontinued if her mobility improves significantly or once she is 2-3 months out from the onset of her spinal cord injury. DISPOSITION: Goal is to achieve one-person assist level for mobility and ADLs. Discharge date set for 11/30/2018. Discharge to detention facility as burden of care is too high for her to discharge to home of relatives. 11/29/18 15:07 Subjective: Ready to discharge tomorrow. She feels she has learned a lot. She says she is much more able to dress herself and to participate and direct her own cares. Had 3 bowel movements today. Objective: Vital Signs Temp Pulse Resp BP Pulse Ox 36.9 C 93 16 115/85 H 95 11/29/18 07:10 11/29/18 07:10 11/29/18 07:10 11/29/18 08:14 11/29/18 07:10 Laboratory Results 11/21/18 06:00 11/21/18 06:00 11/28/18 11/29/18 11/30/18 05:59 05:59 05:59 Intake Total 980 1550 960 Output Total 750 1350 450 Balance 230 200 510 Physical Exam - Physical Exam General Appearance: WD/WN, alert, no apparent distress Respiratory: No respiratory distress, No accessory muscle use Cardiac/Chest: edema (1+ bilateral pretibial) Skin: normal color, warm/dry Neuro/Psych: alert, normal mood/affect, oriented x 3, motor weakness (Bilateral lower extremity) ICD10 Worksheet Patient Problems: Problems Problem Status Onset Spinal cord stroke Acute
[2018-11-29] MEDS: ATORVASTATIN CALCIUM 20 MG TAB PO SCH (20:22)
[2018-11-29] MEDS: SENNOSIDES/DOCUSATE SODIUM TAB PO SCH (20:23)
[2018-11-29] MEDS: ACETAMINOPHEN 325 MG TAB PO PRN (20:23)
[2018-11-29] MEDS: HYDROCODONE/APAP 5/325 TAB PO PRN (20:23)
[2018-11-29] MEDS: NORTRIPTYLINE HCL 25 MG CAP PO SCH (20:23)
[2018-11-29] MEDS: PATCH REMOVAL 1 EA PATCH TD SCH (21:04)
[2018-11-29] MEDS: INSULIN NPH HUMAN 100 UNITS/ML SYR SC SCH (21:04)
[2018-11-30] MEDS: HYDROCODONE/APAP 5/325 TAB PO PRN (05:11)
[2018-11-30] MEDS: LEVOTHYROXINE 75 MCG TAB PO SCH (05:11)
[2018-11-30] MEDS: BISACODYL 10 MG SUPP PR SCH (06:32)
[2018-11-30 08:24] VITALS: BP 129/68
[2018-11-30] MEDS: GABAPENTIN 100 MG CAP PO SCH (08:24)
[2018-11-30] MEDS: LISINOPRIL 10 MG TAB PO SCH (08:25)
[2018-11-30] MEDS: amLODIPine BESYLATE 5 MG TAB PO SCH (08:25)
[2018-11-30] MEDS: ENOXAPARIN 40 MG/0.4 ML SYR SC SCH (08:25)
[2018-11-30] MEDS: ASPIRIN 81 MG CHEWABLE TAB PO SCH (08:25)
[2018-11-30] MEDS: metFORMIN HCL 500 MG TAB PO SCH (08:25)
[2018-11-30] MEDS: MAGNESIUM OXIDE 400 MG TAB PO SCH (08:25)
[2018-11-30] MEDS: FERROUS SULFATE 325 MG TAB PO SCH (08:25)
[2018-11-30] MEDS: LIDOCAINE 4%/MENTHOL 1% PATCH TD SCH (08:26)
[2018-11-30] MEDS: TRIAMCINOLONE 0.1% 15GM OINT TP SCH (08:38)
--- NOTE | 2018-11-30 15:29 | GDS ---
[f rep st] DISCHARGE SUMMARY ADMITTING DIAGNOSIS: Spinal cord injury, incomplete SAVANNAH class C, as complication of aortic reconstruction surgery. DISCHARGE DIAGNOSIS: Spinal cord injury, incomplete SAVANNAH class C, as complication of aortic reconstruction surgery. OTHER DISCHARGE DIAGNOSES: 1. Neurogenic bowel and neurogenic bladder. 2. Dyslipidemia, hypothyroidism and diabetes mellitus type 2. 3. Hypertension. 4. Ischemic skin lesions on the left foot. 5. Obesity. COMPLICATIONS: There were none. PROCEDURES: There were none. CONSULTATIONS: She was seen by the wound care nurse, Raquel Camarena. HISTORY AND HOSPITAL COURSE: This patient was admitted from [facility] [address]. She underwent an elective aortoiliac bypass graft. It was a complicated procedure in which she needed reimplantation of both renal arteries. In the course of the procedure she suffered thoracic to lumbar spinal cord ischemia. The surgery was done at [facility]. She was subsequently discharged to a long term facility where she felt very unsatisfied with her care so she returned home; however, her family was unable to care for her there and she was returned to the hospital where she was found to have severe constipation and electrolyte abnormalities. She also required a Lackey catheter. She was eventually medically stabilized and discharged to inpatient rehabilitation. She was stable in inpatient rehabilitation but failed to have sufficient progress for discharge to home. Her initial functional independence measure was 52 on 11/12/2018, which is consistent with [facility] level of care requiring assistance for all activities of daily living except for eating and for all mobility. Her functional independence measure improved to 62 as of . At that time, she continued to require maximal assistance for transfers and bed mobility. She was able to self propel a wheelchair for 90 feet with standby assist. She required standby assist for grooming and hygiene , upper body dressing and bathing, and maximal assist for bath and toilet transfers. She required total assist for toileting aftercare. Regarding neurogenic bowel and neurogenic bladder, she received intermittent bladder catheterization with the hope that she would be able to self-catheterize , but ultimately she was unable to develop sufficient core strength and trunk stability to have her hands free. Additionally, her obesity was a barrier to self catheterization, thus Lackey catheter was replaced on 11/19/2018. Regarding neurogenic bowel, she received senna 1 tab daily and she had a bisacodyl suppository at 6 a.m. each day with digital stimulation as needed. She did not have completely regular bowel movements so neurogenic bowel is an issue that might continue to receive attention. She had a history of peripheral neuropathy and she also had neuropathic pain likely related to her spinal cord injury. She was initially taking nortriptyline 10 mg at bedtime. This was increased to 25 mg at bedtime on 11/09, and she was able to sleep better. Gabapentin was initiated at 100 mg three times daily and increased to 400 mg three times daily starting 2018. She had relief of her neuropathic symptoms. Regarding diabetes mellitus type 2, she was initiated on metformin 500 mg twice a day. This was increased to 1000 mg twice a day on 11/14/2018. She had an increase in insulin glargine from 18 units to 20 units at bedtime on 2018. In the last several days before discharge, her fasting blood sugars were as low as 89 and otherwise blood sugars ranged from 153-231 during the day. Regarding hypertension, blood pressure was stabilized with lisinopril and hydrochlorothiazide. Regarding ischemic skin lesions on the left toes, she was seen by the wound nurse. These were not pressure ulcers. She was treated with Betadine twice daily for eschar and skin was healing quite nicely. DISCHARGE PLAN: DISPOSITION: To a long term facility in the [facility], for long-term care under Medicaid. CONDITION: Good. ACTIVITY: She requires assistance for all mobility related ADLs as well as for other ADLs as described above. DIET: No concentrated carbohydrate 2000 kilocalories per day. ALLERGIES: She has allergies to doxycycline, duloxetine, morphine, and topiramate. DISCHARGE MEDICATIONS: 1. Acetaminophen 650 mg p.o. q.6 hours p.r.n. 2. Albuterol nebulizer 3 mL q.2 hours p.r.n. 3. Amlodipine 5 mg p.o. daily. 4. Aspirin 81 mg daily. 5. Atorvastatin 20 mg p.o. at bedtime. 6. Bisacodyl suppository 1 p.r. daily at 6 a.m. as part of the neurogenic bowel protocol. 7. Calcium carbonate 500 mg p.o. q.3 hours p.r.n. 8. Enoxaparin 40 mg subcutaneous daily, which should continue for a total of 3 months, through the month of December. 9. Ferrous sulfate 325 mg p.o. daily to continue through 12/07. 10. Gabapentin 400 mg p.o. three times daily. 11. Hydrocodone/acetaminophen 5/325 one p.o. q.6 hours p.r.n. 12. Hydrocortisone 2.5% cream topical for hemorrhoids p.r.n. twice daily. 13. Insulin NPH 20 units subcutaneous at bedtime. 14. Levothyroxine 75 mcg p.o. daily. 15. Lidocaine patches p.r.n. daily. 16. Lisinopril 10 mg p.o. daily. 17. Magnesium oxide 400 mg p.o. twice daily with meals. 18. Metformin 1000 mg p.o. twice daily with meals. 19. Nitroglycerin ointment 2% 0.5 inches topically to skin q.6 hours p.r.n. autonomic dysreflexia. 20. Nystatin powder p.r.n. 21. Senna/docusate 1 tab p.o. at bedtime. 22. Triamcinolone ointment to rash p.r.n. 23. Zinc oxide moisture barrier as needed. ISSUES TO BE ADDRESSED AT FOLLOWUP: 1. Debility due to spinal cord injury. She should continue PT and OT and hope for gradual continued improvement. 2. Neurogenic bowel and bladder. Continue neurogenic bowel protocol as described above. 3. Neurogenic bladder. Should she develop adequate truncal stability, consider training for intermittent self catheterization. 4. Chronic conditions of dyslipidemia, hypothyroidism, diabetes mellitus type 2 and hypertension. Continue medications and follow up with her new attending physician at the long term facility. Copy requested to: Dr. Monster [facility] Dr. Munir Bailey #: [id number]
== END 2018-11-30 13:22 | DRG 92 ==
LOC: BREH 18:25
PROVIDERS: ADMIT Internal Medicine Hospice and Palliative Medicine; ATTEND Internal Medicine Hospice and Palliative Medicine
DX: G95.11 Acute infarction of spinal cord (embolic) (nonembolic) (principal); G82.22 Paraplegia, incomplete; E11.51 Type 2 diabetes mellitus with diabetic peripheral angiopathy without gangrene; E11.40 Type 2 diabetes mellitus with diabetic neuropathy, unspecified; G89.29 Other chronic pain; N31.9 Neuromuscular dysfunction of bladder, unspecified; K21.9 Gastro-esophageal reflux disease without esophagitis; I10 Essential (primary) hypertension; E03.9 Hypothyroidism, unspecified; E78.5 Hyperlipidemia, unspecified; E66.01 Morbid (severe) obesity due to excess calories; Z96.652 Presence of left artificial knee joint; Z87.440 Personal history of urinary (tract) infections; Z68.38 Body mass index [BMI] 38.0-38.9, adult; K59.2 Neurogenic bowel, not elsewhere classified
CPT/HCPCS: 97110-GO; 97110-GP; 97112-GP; 97140-GO; 97162-GP; 97167-GO; 97530-GO; 97530-GP; 97535-GO; 97542-GP; J1650; J1815